=== PATIENT | male | born 1945 | race Caucasian/White ===

== ENCOUNTER → 2017-10-19 16:21 | Outpatient (CLI) | payer MEDICARE, MEDICAID, SELFPAY | PROVIDERS: Family Provider Family Medicine; PCP Family Medicine; Visit Provider Urology | DX: R82.99 Other abnormal findings in urine (principal) | CPT/HCPCS: 87086; 87088; 87186 ==

== ENCOUNTER 2017-10-30 14:07 | Inpatient (IN) | payer MEDICARE, MEDICAID, SELFPAY ==
[2017-10-22 08:30] VITALS: BP 143/80; PULSE 73; RESP 18; TEMP 36.4; O2SAT 93; BMI 34.7
[2017-10-22 09:01] LABS: Hematocrit 39.1 % (40-54); Hemoglobin 12.4 g/dl (13.0-16.5); Mean Corp Hgb Conc 31.7 g/gl (32-36); Mean Corpuscular Hgb 31.2 pg (27.0-32.0); Mean Corpuscular Volume 98.2 fL (80-94); Mean Platelet Vol. 9.4 fl (6.2-12.0); Platelet Count 341 K/mm3 (150-450); RBC Distribution Width CV 14.2 % (11.6-14.6); RBC Distribution Width SD 50.8 fl (35.1-43.9); Red Blood Count 3.98 M/mm3 (4.6-6.2); Scan Indicated on CBC? Y/N NO; White Blood Count 9.6 K/mm3 (4.4-11.0)
[2017-10-22 09:31] LABS: Anion Gap 10 (5-15); BUN 18 mg/dL (7-18); BUN/Creat Ratio 14.3 RATIO (10-20); Calcium,Total 9.6 mg/dL (8.5-10.1); Chloride 106 mmol/L (98-107); Creatinine, Serum 1.26 mg/dL (0.70-1.30); EST Glomerular Filtration Rate 60 mL/min (>60); Est Glom Filt Rate - Afr Amer 72 mL/min (>60); Estimated Creatinine Clearance 62.52 ml/min; Glucose 102 mg/dL (74-106); Potassium 3.9 mmol/L (3.5-5.1); Sodium Level 140 mmol/L (136-145)
[2017-10-29] VITALS (10 sets, daily range): BP systolic 117–181; BP diastolic 58–94; PULSE 60–79; RESP 16–18; TEMP 36.1–36.8; O2SAT 93–100; BMI 34.7
[2017-10-29] MEDS: Cefazolin 2 GM in 0.9% Normal Saline 100 ML IV (12:48)
[2017-10-29] MEDS: oxyCODONE 5 MG Tablet PO ×2 (16:53→21:06)
[2017-10-29] MEDS: 0.9% Normal Saline 1,000 ML 75 ML IV (16:54)
--- NOTE | 2017-10-29 17:28 | PCM.OPRPT ---
Report of Operation Date of Procedure: 10/29/17 Pre-Operative Diagnosis: Bladder neck contracture and gross gross hematuria Post-Operative Diagnosis: Same Surgery/Procedure Performed:: Transurethral incision of the prostate and transurethral resection of a very large bladder tumor Description of Surgical Findings:: 71-year-old male who has a history of a TURP in the past that was performed by me several years ago. Had not seen the patient for quite some time he ended up in [facility] at that point he had difficulty with a catheter placement cystoscopy was done a catheter was placed at [facility] and saw me for follow-up at that point remove the catheter and then schedule him for cystoscopy to evaluate the urinary channel as if there is reports of scar tissue in the channel. 71-year-old male taken back to the operating room at the smooth induction of general anesthesia he was placed in dorsal lithotomy position, penis and testicles were prepped and draped in usual sterile fashion, I went into the bladder with a 21 [place] African rigid cystourethroscope the entire length of the urethra was okay the sphincter was intact he had obvious signs of prior resection of the prostate open channel into the bladder count of the bladder neck was tight and then when I got into the bladder had a significant amount of debris in the bladder very hard to see. So I removed the cystoscope and I advanced a 26 South African urethroscope and switched over to the Rolle knife I then performed an incision of the bladder neck using the Rolle knife on both the left and right side at the 6 o'clock position and the 5 and 7 o'clock position once the incision was done then then I went into the bladder again still a lot of debris in the bladder so I decided Ellik out the debris and when I use a manual device to Ellik out the debris that I was able to see it much better and then after the Ellik and out this debris I could see a tumor that was filling the entire bladder coming from the patient's left side. We then switched over to the Olympus resectoscope and I started resecting this tumor and immediately saw that this was a very large invasive tumor appeared to be going to the bladder muscle and into fat. I resected as much as was deemed possible and safe but we did not and could not do a complete resection. After resecting this tumor as much as possible I then cauterized extensively to obtain hemostasis all the bladder tumor chips were removed and handed off as a specimen. On and inspection I think most likely has invasive aggressive type of bladder cancer. I put in a 24 South African catheter put on continuous bladder irrigation and the patient was then transferred to the floor in stable condition will do further workup in the hospital. Spoke to the family regarding the finding of a bladder tumor they were not aware of any prior diagnosis of a bladder tumor bladder cancer. Type of Anesthesia:: General Drains: 24fr - Admit VTE Documentation VTE Present on Admission: No VTE Mechan Device Prophylaxis: SCD's
[2017-10-29] MEDS: Ibuprofen 600 MG Tablet PO (17:45)
[2017-10-29] MEDS: Tamsulosin HCl 0.4 MG Capsule PO (17:45)
[2017-10-29] MEDS: Albuterol 2.5 MG/3 ML VIAL.NEB. INHALATION (20:04)
[2017-10-29] MEDS: Docusate Sodium 100 MG Capsule PO (21:07)
[2017-10-29] MEDS: Ciprofloxacin 500 MG Tablet PO (21:07)
[2017-10-29] MEDS: amLODIPine 10 MG Tablet PO (21:07)
[2017-10-29] MEDS: Acetaminophen 500 MG Tablet PO (22:12)
--- NOTE | 2017-10-29 22:15 | NURSING ---
[facility] called to place pt on cpap for hs.
[2017-10-30] VITALS (9 sets, daily range): BP systolic 94–133; BP diastolic 53–74; PULSE 60–89; RESP 16–18; TEMP 36.8–37.5; O2SAT 85–96
--- NOTE | 2017-10-30 | BLA_PTH ---
PATIENT: SUJEY VICTOR LOC: MS3 U#:[id number] AGE/SX: 71/M ROOM: WA320 RE10/31/[address]: Dr. Yo Puckett MD : 1945 BED: 1 DIS: 11/03/2017 SPEC #: [id number] RECD: 10/30/17 10:01 STATUS: NURA TUCKER #: [id number] NATIVIDAD: 10/30/17 00:[address]: Yo Puckett DEPT: SURGICAL PATHOLOGY RECD BY: Akshat Hernandez ENTERED: 10/30/17 10:01 SP TYPE: BLADDER BX OTHR DR: Dr. Malcolm Funez MD Tissues: Urinary bladder, NOS Procedures: Surgery Specimen Level IV HEADER OPERATION: Cystoscopy, transurethral incision of bladder neck obstruction PRE-OP DIAGNOSIS: Bladder neck contracture; bladder tumor TISSUE SUBMITTED: Bladder tumor MICROSCOPIC DIAGNOSIS Urinary bladder tumor, transurethral resection: Squamous cell carcinoma. AM:judy 11/03/17 COMMENT BLADDER CANCER (TUR) SUMMARY: Procedure - TURBT Histologic type ? squamous cell carcinoma, keratinizing. Associated epithelial lesions ? not identified Histologic grade ? G1 (well differentiated) Tumor configuration ? papillary and exophytic. Detrusor muscle - present and free of tumor. Lymph-Vascular invasion ? not identified Microscopic extent of tumor ? noninvasive carcinoma Additional pathologic findings ? mild chronic inflammation. The above summary is in compliance with [employer] (CAP) Cancer Protocols Checklist and [place] Joint Committee on Cancer (AJCC), Staging Manual, 8th Ed. Case has been reviewed in consultation with Dr. Orourke who concurs with the above diagnosis. IDC:SJ MICROSCOPIC DESCRIPTION Slides are reviewed. GROSS DESCRIPTION Received in fixative is one container labeled with the patient's name and designated bladder tumor. The specimen consists of multiple irregular and friable fragments of james tissue measuring 8 x 8 x 1.4 cm. The specimen is totally submitted in 22 cassettes. / AM:judy 10/30/17 TC:0 CPT: 47849 ADDENDUM ADDENDUM ADDENDUM ADDENDUM ADDENDUM ADDENDUM ADDENDUM ADDENDUM ADDENDUM ADDENDUM ADDENDUM 12/09/2017 15:42 ADDENDUM 12/09/2017 15:42 ADDENDUM 12/09/2017 15:42 ADDENDUM 12/09/2017 15:42 ADDENDUM 12/09/2017 15:42 This addendum is added to incorporate an outside pathology consultation report. The case was examined at [facility] (#[id number]) and the following diagnosis was rendered. 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 Muscularis propria is present for evaluation and is negative for malignancy. Please see complete above mentioned consultation report in EMR
--- NOTE | 2017-10-30 00:19 | NURSING ---
Called [facility] to have them bleed some oxygen into pt's CPAP. He has been hovering around 88%. She will bring up the supplies to do so.
[2017-10-30] MEDS: 0.9% Normal Saline 1,000 ML 100 ML IV ×2 (02:33→13:27)
[2017-10-30] MEDS: oxyCODONE 5 MG Tablet PO (02:39)
[2017-10-30] MEDS: Albuterol 2.5 MG/3 ML VIAL.NEB. INHALATION (07:23)
--- NOTE | 2017-10-30 07:40 | NURSING ---
Called and talked with CT to let them know that Dr Puckett wants patient to have CBI running while he is having the CT. Dr Puckett does not want patient to clot off if the CBI isn't running.
[2017-10-30] MEDS: Ibuprofen 600 MG Tablet PO (07:46)
--- NOTE | 2017-10-30 08:24 | PCA ---
off floor via bed , ct scan
[2017-10-30] MEDS: 0.9% NaCl Peripheral Flush Adult/Peds IV ×2 (09:40→15:49)
[2017-10-30] MEDS: Docusate Sodium 100 MG Capsule PO ×2 (09:40→20:58)
[2017-10-30] MEDS: Pantoprazole Sodium 40 MG Tablet PO (09:40)
[2017-10-30] MEDS: Ciprofloxacin 500 MG Tablet PO ×2 (09:40→20:58)
--- NOTE | 2017-10-30 12:28 | CASEMGMT ---
Social Work: TC to [facility] to inquire about serves and to speak with thu. Casemanager is Winnie Milligan. Winnie is not in the office today. Voice mail left for environmental services tech to call this SW back regarding patient services and resumption of care. Will follow to assist as needed with D/C planning. Kanu Schmidt
--- NOTE | 2017-10-30 12:54 | CASEMGMT ---
Social work: TC from Maryjane at [facility]. Maryjane states that patient receives 3 hours of aid services Thursday through Thursday through [facility]. Maryjane states that services will be resumed on Thursday. Spoke with patient and . Both aware that aid services will resume on Thursday. Patient's states that patient also receives skilled PT through [facility] and they will be coming to the home on Thursday. PLAN: Patient to return home with and continued aid services Thu- Thu 3 hours a day. TIGRE Gama
--- NOTE | 2017-10-30 13:30 | CASEMGMT ---
ALLIE HEATH Face to Face with patient. Patient and in room. Patient states he lives with in 2 story home with bed and bath on 1st floor. Patient states that he has cane, walker, nebulizer, and CPAP at home. Patient has long-term and PT with [facility]. Will monitor need for home oxygen and preferred DME is [facility]. ALLIE HEATH called HHC and confirmed services and will update with discharge information when appropriate. ALLIE HEATH called and confirmed with [facility] that they are in-network with patients insurance. Disposition Plan: Patient to return home with resumption of HHC, family support, and follow-up plans in place. Will monitor for need for home oxygen.
--- NOTE | 2017-10-30 14:50 | PCM.PROGNOTE ---
Subjective: 71-year-old male admitted after transurethral resection of a very large bladder tumor, it was an incomplete resection due to the size of the tumor appear to be invasive cancer. Pathology report is pending he does have a CAT scan done this morning demonstrates no clear evidence of metastatic disease but I spoke to the patient regarding the possibility of micrometastatic disease. - Physical Exam General: Alert, Oriented x3, Cooperative HEENT: Atraumatic, PERRLA, EOMI, Normocephalic Neck: Supple, No JVD, Negative Carotid Bruits Lungs: Clear to auscultation, Normal air movement Cardiovascular: Regular rate, No murmurs Abdomen: Bowel Sounds Present, Soft, Non Tender Extremities: No edema, Capillary Refill Less than 3 Seconds Skin: No rashes, No breakdown Musculoskeletal: No Tenderness to Palpation of Joints or Extremities Neurological: Cranial nerves II-XII grossly intact Psych/Mental Status: Normal Affect, Appropriate Vital Signs Temp Pulse Resp BP Pulse Ox 98.2 F 63 16 94/53 L 95 10/30/17 13:31 10/30/17 13:31 10/30/17 13:31 10/30/17 13:31 10/30/17 13:31 Oxygen Flow Rate (L/min) 3 Oxygen Delivery Method Nasal Cannula Weight: 122.5 kg Body Mass Index (BMI) 34.7 Intake and Output for Last 24 Hours 10/28/17 10/29/17 10/30/17 23:59 23:59 23:59 Intake Total 1138 / 1138 2275 / 2275 Output Total 1200 / 1200 1300 / 1300 Balance -62 / -62 975 / 975 Medical Necessity - Tobacco Use Smoking Status: Never smoker Tobacco Use: Secondhand Assessment/Plan All Active Problems Acute deep vein thrombosis (DVT) (Acute) Acute DVT of left tibial vein (Acute) 71-year-old male found to have bladder cancer appears to be invasive. CAT scan was done and reviewed he has some mild hydronephrosis on the left side right side no hydro-. Plan to have the catheter removed tomorrow morning by the nursing staff and he can go home after he is able to urinate he will follow-up in the office on to review pathology and will plan for referral to a tertiary care center for further care.
--- NOTE | 2017-10-30 14:52 | PCM.DC.URO ---
Discharge Diet: Light diet - advance as tolerated Discharge Activity: Return to Normal Activity Call your doctor if your incision/area has: Continuous Slow Oozing, Sudden Increased Bleeding, Increased Pain/ Swelling, Increased Redness Call your doctor if you observe: Fever of 101 or Higher, Inability to have a bowel movement, Uncontrolled pain Suture Line Care: Avoid Pulling/Pushing, Avoid Pinching/Bending Allergies/Adverse Reactions: Allergies tramadol Adverse Reaction (Verified 10/22/17 08:10) SKIN RASH IV TRAMADOL Medications to take at Discharge Amlodipine [Norvasc] 10 mg PO QHS 09/06/13 Albuterol Aerosols [Ventolin Aerosols] 2.5 mg INHALATION DAILY 10/22/17 Ciprofloxacin [Cipro] 500 mg PO BID 10/22/17 Pantoprazole Sodium [Protonix] 40 mg PO DAILY 10/22/17 Tamsulosin HCl [Flomax] 0.4 mg PO DAILY 10/22/17 Ciprofloxacin [Cipro] 500 mg PO BID #14 tab 10/29/17 Hydrocodone/Acetaminophen [Hume 5-325 Tablet] 1 ea PO Q4H PRN PRN 5 Days #14 tab 10/29/17 The following prescriptions were given: Hydrocodone/Acetaminophen [Hume 5-325 Tablet] 1 ea PO Q4H PRN PRN 5 Days #14 tab PRN Reason: Pain Ciprofloxacin [Cipro] 500 mg PO BID #14 tab Primary Care Physician: Malcolm Funez [Primary Care Provider] - Test Results: Test results from this visit will be discussed in further detail at your follow-up appointment, if applicable. Please Follow Up With: Yo Puckett MD When: please call to make an appointment. Proposed Discharge Date: 10/31/17
[2017-10-30] MEDS: Furosemide 20 MG/2 ML VIAL 10 MG IV (15:49)
[2017-10-30] MEDS: amLODIPine 10 MG Tablet PO (20:58)
[2017-10-31] VITALS (9 sets, daily range): BP systolic 111–140; BP diastolic 63–82; PULSE 72–90; RESP 16–20; TEMP 37.1–37.4; O2SAT 86–96
[2017-10-31] MEDS: oxyCODONE 5 MG Tablet PO ×4 (08:05→21:33)
[2017-10-31] MEDS: Albuterol 2.5 MG/3 ML VIAL.NEB. INHALATION (08:06)
[2017-10-31] MEDS: Pantoprazole Sodium 40 MG Tablet PO (08:33)
[2017-10-31] MEDS: Ciprofloxacin 500 MG Tablet PO ×2 (08:33→21:33)
[2017-10-31] MEDS: Docusate Sodium 100 MG Capsule PO ×2 (08:33→21:33)
--- NOTE | 2017-10-31 14:17 | NURSING ---
Pt voided 100ml of urine. This nurse bladder scanned for 467ml PVR. Pt also walked in mancuso and pt needs 4L of o2 while ambulating. Dr. Puckett just made aware and cancelled Discharge for today and wants sal replaced and hospitalist to consult.
--- NOTE | 2017-10-31 14:23 | CON.PCM_ITS ---
Problem List (1) Shortness of breath Status: Acute Reason for Consult Date of Consultation: 10/31/17 Reason for Consultation: worsening shortness of breath History of Present Illness: The patient is a 71 year old M with a history of respiratory failure due to pneumonia status post tracheostomy, transurethral resection of right large bladder tumor done last , GLEN and chronic venous insufficiency. He was admitted for TURP which he had on 10/29/17. After that, patient was brought back to his room on 3 L of oxygen. Patient has required increasing amounts of oxygen since then and is now up to 5 L and unable to wean off. Hospitalist service was therefore consulted for management of shortness of breath. History taken from patient and his . Patient was managed for pneumonia back in April 2017 and developed respiratory failure as a result of that. He was intubated in the ICU for about 3 months according to his and subsequently had a tracheostomy done. He was in the [facility] up until about 6 weeks ago when he was sent home. At home he has been on room air and ambulates well with his cane without getting short of breath. He uses a CPAP at night with settings of 14. He had had any shortness of breath until he was admitted. During this admission he has not had any anticoagulation for DVT prophylaxis. SCDs were prescribed the patient has been wearing them only intermittently. This is because he did not really like wearing that. He denies any chest pain, any abdominal pain, any diarrhea or vomiting. He did admit to bilateral lower extremity swelling was in the left than the right which is chronic. He also denied any calf pain. He is denied being managed for DVT or PE in the past. However, review of the records showed he had a DVT of the left popliteal and gastrocnemius veins in 2016; not clear how long he was anticoagulated for then. Of note, the bladder tumor resected was an incidental finding as patient had come in for from what he describes urethral dilatation due to stricture of the urethra.. Per Urology note, it was an incomplete resection of the very large bladder tumor. Size of the tumor does appear make it appear to be an invasive cancer. During review, patient was on 5 L of oxygen and when he was brought down to about 2-3 L, saturation dropped to 87%. He denied any cough, fever or chills. He had been using incentive spirometer and had been ambulating with help but most of the time was in bed. Review of systems otherwise negative. [] Past Medical History Past Medical History (Chronic Problems): Chronic Problems Lipodermatosclerosis (Chronic) Venous hypertension, chronic, with inflammation (Chronic) Chronic venous insufficiency (Chronic) Back pain (Chronic) Edema leg (Chronic) Leg swelling (Chronic) Localized edema (Chronic) Superficial thrombophlebitis of left leg (Chronic) Hypertension (Chronic) History of Hodgkin's disease (Chronic) History of Legionnaire's disease (Chronic) History of kidney stones (Chronic) hemosiderin staining (Chronic) Allergies tramadol Adverse Reaction (Verified 10/22/17 08:10) SKIN RASH IV TRAMADOL Home Medications: Ambulatory Orders Medication Instructions Recorded Amlodipine [Norvasc] 10 mg PO QHS 09/06/13 Albuterol Aerosols [Ventolin 2.5 mg INHALATION DAILY 10/22/17 Aerosols] Ciprofloxacin [Cipro] 500 mg PO BID 10/22/17 Pantoprazole Sodium [Protonix] 40 mg PO DAILY 10/22/17 Tamsulosin HCl [Flomax] 0.4 mg PO DAILY 10/22/17 Ciprofloxacin [Cipro] 500 mg PO BID #14 tab 10/29/17 Hydrocodone/Acetaminophen [Gentry 1 ea PO Q4H PRN PRN 5 Days #14 tab 10/29/17 5-325 Tablet] Surgical History: noncontributory, - - Patient underwent a left lower extremity vein stripping procedure in 2010 at [facility]. The procedure was performed using 2 incisions, both below the knee. 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 He underwent right kidney surgery in childhood, due to the presence of a blood vessel wrapped around the ureter. Bilateral total hip replacement was performed in 2003 in 2004. Colostomy was performed in 2000, with reversal in 2002. Patient has had several incisional hernia repairs. Lives: Spouse/ Significant Other Smoking Status: Never smoker Tobacco Use: Secondhand - *Family History Maternal History Items: - - The patient's father of AIDS related to a history of cerebrovascular accident and pacemaker placement. The patient's mother at the age of 76 with history of vasculitis. Review of Systems Constitutional: Denies: Chills, Fever, Malaise, Weakness, Weight Change, Fatigue Eyes: Denies: Blurred vision HEENT: Denies: Head Aches, Sinus Congestion, Sinus Drainage Cardiovascular: Denies: Chest Pain, Light Headedness, Orthopnea, Palpitations, Syncope Respiratory: Reports: Shortness of Breath, Shortness of breath at rest, Shortness of breath upon exertion. Denies: Cough, Hemoptysis, Pleuritic Pain, Sputum production, Wheezing Gastrointestinal: Denies: Abdominal Pain, Diarrhea, Dyspepsia, Nausea, Vomiting Genitourinary: Denies: Dysuria Musculoskeletal: Denies: Foot Pain, Joint Pain, Joint Tenderness, Leg Pain, Muscle pain Skin: Denies: Rash, Wounds Neurological: Denies: Numbness, Tingling, Focal weakness Psychiatric: Denies: Anxiety, Depression, Homicidal Ideations, Suicidal Ideations Hematologic/ Lymphatic: Denies: Easy Bruising, Easy Bleeding Patient Problems: Active and Suspected Problems Shortness of breath (Acute) - Physical Exam General: Alert, Oriented x3, Cooperative, No apparent distress, - - obese HEENT: Atraumatic, PERRLA, EOMI, Normocephalic Oral: Moist Mucosa Neck: Supple, No JVD, Negative Carotid Bruits Lungs: - - has coarse crackles bilaterally in mid and lower lung prater. on 5L of oxygen at time of review Cardiovascular: Regular rate, Regular Rhythm, Normal S1, Normal S2, No murmurs Abdomen: Bowel Sounds Present, Soft, Non Tender, Non-Distended, No Hepato- splenomegaly, Obese Extremities: No clubbing, No cyanosis, Capillary Refill Less than 3 Seconds, No Calf Tenderness, - - bilateral LE swelling, which is mildly pitting. RLE is 37cm in circumference, with LLE being 42cm in circumference. Skin: No rashes, No breakdown, - - hyperpigmentation of LLE due to stasis dermatitis Musculoskeletal: No Tenderness to Palpation of Joints or Extremities Lymphatic: No Cervical, Supraclavicular, or Inguinal Adenopathy Neurological: Cranial nerves II-XII grossly intact, Motor Exam 5/5 strength throughout Psych/Mental Status: Normal Affect, Appropriate, Alert and oriented to time, place, person, mood and affect Vital Signs Temp Pulse Resp BP Pulse Ox 99.3 F H 84 20 H 134/64 H 91 10/31/17 07:55 10/31/17 08:06 10/31/17 08:06 10/31/17 07:55 10/31/17 11:53 Oxygen Flow Rate (L/min) [ 4 AMBULATION with Oxygen] Oxygen Flow Rate (L/min) [At 0 REST on Room Air] Oxygen Flow Rate (L/min) 5 Oxygen Delivery Method Nasal Cannula Weight: 270 lb 1.06 oz Body Mass Index (BMI) 34.7 Intake and Output for Last 24 Hours 10/29/17 10/30/17 10/31/17 23:59 23:59 23:59 Intake Total 1138 / 1138 2425 / 2425 150 / 150 Output Total 1200 / 1200 2600 / 2600 250 / 250 Balance -62 / -62 -175 / -175 -100 / -100 Assessment/Plan All Active Problems Shortness of breath (Acute) Acute deep vein thrombosis (DVT) (Acute) Acute DVT of left tibial vein (Acute) 72-year-old male with a history of respiratory failure due to pneumonia, GLEN on CPAP and recent history of TURP due to invasive bladder tumor most likely cancer. Hospitalist service was consulted on account of worsening shortness of breath and increasing oxygen requirements. 1. Acute hypoxic respiratory failure- possible causes include PE, undiagnosed CHF, GLEN and OSH * has many risk factors for PE, including prolonged bed rest, obesity, bladder tumor most likely cancer and not receiving any anticoagulation for the past 4 days that has been in the hospital. * He did have a CT chest with contrast on 10/31/17 which was negative for a PE and showed increased markings at lung baes with areas of confluence suggestive of bibasilar atelectasis. Mild degree of increased markings in lingular segment of left upper lobe. Normal enhanced pulmonary arteries * stat ABG: pH of 7.36, pO2-56, pCO2-37. * was saturating at 87% on 3L of oxygen, not on oxygen at home * EKG done on 10/22/17 showed normal sinus rhythm, cnnot rule out inferior infarct, age undetermined. * will get stat CXR, BMP, BNP, 2D echo and DUplex of his LEs as well as troponins * give one dose of IV lasix 40mg once. * start CPAP therapy * pulmonology consult * maintain saturation >92% * aggressive use of incentive spirometry * breathing treatments with duonebs * discussed with radiology- patient had CT chest with contrast, not a CT angiogram. The timing of the contrast with the chest CT is apparently during the venous phase, per radiology, so it is very possible that a PE may have been missed. Based on this discussion, will get a stat CT angiogram. * 2. History of DVT of LLE * patient denied any history of DVT; however, review of EMR showed a report from 11/15 which showed an acute resolving DVT in left popliteal and gastrocnemius vein; unknown if, and for how long he was anticoagulated. * duplex ordered for current LE swelling, as mentioned in 1. * 3. Invasive bladder tumor s/p partial resection * management as per urology * on flomax * 4. Hypertension: controlled. On amlodipine 10mg daily. 5. GLEN: on CPAP qhs [id number] 6. Remote History of Non Hodgkin's lymphoma: s/p treatment. stable. 7. Chronic venous insufficiency: compression stockings bilaterally DVT prophylaxis: will start heparin 5000IU sq q8 Code status: Full code. * Patient and counseled extensively about different types of CODE STATUS including respiratory full code, DNR CCA and DNR CCA. Patient elects to be full code.Total face to face time 18 minutes This note was generated with [employer] dictation software. It may contain incorrect words, spelling, and punctuation that were not noted in checking the note before signing. Code Visit Inpatient E&M: 42891 Init Hosp L3 Procedures: 42426 Advncd Care Plan 30 Min
[2017-10-31] MEDS: Ibuprofen 600 MG Tablet PO (14:54)
--- NOTE | 2017-10-31 15:00 | NURSING ---
Nicole's aly and Rah from [facility] is aware that Dr. Petersen wants called with results.
[2017-10-31 15:11] LABS: Allen Test POS; Base Excess -5 mmol/L (-2 to +2); Bicarbonate 20.6 mmol/L (22-26); Blood Gas Specimen Type ART; O2 Delivery Device Nasal Can; PO2 56 mmHG (75-100); SITE R Radial; SO2 87 % (95-99); Time Given 1458; Total Carbon Dioxide 22 mmol/L; pCO2 37.6 mmHg (35-45); pH 7.35 (7.35-7.45)
--- NOTE | 2017-10-31 15:13 | NURSING ---
LAb here and obtained blood for CBC, BMP, BNP
--- NOTE | 2017-10-31 15:27 | NURSING ---
REsults of ABG's given to me by BRYAN Monreal and this nurse took a picture and sent it via EeBriat to Dr. Petersen. On the phone with Dr. Petersen she is aware of results and wants him on hospital CPAP. Rah aware.
[2017-10-31 15:38] LABS: Anion Gap 8 (5-15); BUN 24 mg/dL (7-18); BUN/Creat Ratio 16.6 RATIO (10-20); Calcium,Total 8.4 mg/dL (8.5-10.1); Chloride 111 mmol/L (98-107); Creatinine, Serum 1.45 mg/dL (0.70-1.30); EST Glomerular Filtration Rate 51 mL/min (>60); Est Glom Filt Rate - Afr Amer 62 mL/min (>60); Estimated Creatinine Clearance 54.33 ml/min; Glucose 114 mg/dL (74-106); Sodium Level 142 mmol/L (136-145)
--- NOTE | 2017-10-31 15:44 | NURSING ---
Dr. Petersen is aware that Echo and Duplex can not be done until tomorrow. This nurse asked if we could put SCD's on pt as he was refusing them and they were not on and now we are ruling out a DVT. Dr. Petersen said to go ahead and put SCD's on and his own compressor stockings from home.
[2017-10-31 15:49] LABS: BNP,B-Type NATRIURETIC PEPTIDE 85.8 pg/mL (0-100)
[2017-10-31 15:54] LABS: Absolute Lymphocyte Count 2.46 X10^3/ul (0.83-4.51); Basophil# 0.04 X10^3/uL; Basophil% 0.3 % (0-1); Eosinophil# 0.33 X10^3/uL; Eosinophils% 2.3 % (0-5); Hematocrit 31.4 % (40-54); Hemoglobin 9.8 g/dl (13.0-16.5); Lymphocyte # 2.46 X10^3/ul (4.0); Lymphocyte % 17.4 % (19-41); Mean Corp Hgb Conc 31.2 g/gl (32-36); Mean Corpuscular Hgb 30.8 pg (27.0-32.0); Mean Corpuscular Volume 98.7 fL (80-94); Mean Platelet Vol. 9.5 fl (6.2-12.0); Monocyte# 2.25 X10^3/uL; Monocyte% 15.9 % (0-10); Neutrophil % 63.9 % (47-70); Platelet Count 270 K/mm3 (150-450); RBC Distribution Width CV 14.5 % (11.6-14.6); RBC Distribution Width SD 53.2 fl (35.1-43.9); Red Blood Count 3.18 M/mm3 (4.6-6.2); White Blood Count 14.1 K/mm3 (4.4-11.0)
[2017-10-31 15:55] LABS: Differential Indicated SCAN CRITERIA MET; POSITIVE COUNT NO; POSITIVE DIFFERENTIAL YES; POSITIVE MORPHOLOGY YES
[2017-10-31] MEDS: 0.9% NaCl Peripheral Flush Adult/Peds IV ×2 (15:57→17:28)
[2017-10-31] MEDS: Ketorolac 15 MG/ML Vial IV (15:57)
[2017-10-31] MEDS: Furosemide 40 MG/4 ML Vial IV (15:58)
[2017-10-31 16:36] LABS: Anion Gap 8 (5-15); BUN 24 mg/dL (7-18); BUN/Creat Ratio 16.8 RATIO (10-20); Calcium,Total 8.1 mg/dL (8.5-10.1); Chloride 111 mmol/L (98-107); Creatinine, Serum 1.43 mg/dL (0.70-1.30); EST Glomerular Filtration Rate 52 mL/min (>60); Est Glom Filt Rate - Afr Amer 63 mL/min (>60); Estimated Creatinine Clearance 55.09 ml/min; Glucose 114 mg/dL (74-106); Potassium 4.2 mmol/L (3.5-5.1); Sodium Level 142 mmol/L (136-145)
[2017-10-31 16:45] LABS: Acanthocytes RARE; Differential Comment SCANNED; Platelet Estimate ADEQUATE (ADEQ)
[2017-10-31] MEDS: Tamsulosin HCl 0.4 MG Capsule PO (17:27)
[2017-10-31] MEDS: 0.9% Normal Saline 1,000 ML 75 ML IV (17:31)
[2017-10-31] MEDS: amLODIPine 10 MG Tablet PO (21:33)
[2017-10-31] MEDS: Heparin Injection (Vial) 5,000 UNIT/ML VIAL 5000 UNIT SC (21:33)
[2017-11-01] MEDS: oxyCODONE 5 MG Tablet PO ×4 (01:00→22:12)
[2017-11-01 02:30] VITALS: BP 128/68; PULSE 67; RESP 16; TEMP 36.6; O2SAT 94
[2017-11-01 06:40] LABS: Absolute Neutrophil Count 4.5 X10^3/uL (2.0-7.7); Basophil# 0.03 X10^3/uL; Basophil% 0.3 % (0-1); Eosinophil# 0.58 X10^3/uL; Eosinophils% 6.3 % (0-5); Hemoglobin 9.3 g/dl (13.0-16.5); Mean Corpuscular Hgb 30.4 pg (27.0-32.0); Mean Platelet Vol. 9.5 fl (6.2-12.0); Monocyte# 1.77 X10^3/uL; Monocyte% 19.2 % (0-10); Neutrophil # 4.45 X10^3/uL (2.7-7.7); Neutrophil % 48.1 % (47-70); Platelet Count 248 K/mm3 (150-450); RBC Distribution Width CV 14.7 % (11.6-14.6); RBC Distribution Width SD 52.5 fl (35.1-43.9); Red Blood Count 3.06 M/mm3 (4.6-6.2); White Blood Count 9.2 K/mm3 (4.4-11.0)
[2017-11-01 06:41] LABS: Differential Indicated SCAN CRITERIA MET; POSITIVE COUNT NO; POSITIVE DIFFERENTIAL YES; POSITIVE MORPHOLOGY YES
[2017-11-01 06:54] LABS: Anion Gap 10 (5-15); BUN 22 mg/dL (7-18); BUN/Creat Ratio 16.3 RATIO (10-20); Calcium,Total 8.3 mg/dL (8.5-10.1); Chloride 111 mmol/L (98-107); Creatinine, Serum 1.35 mg/dL (0.70-1.30); EST Glomerular Filtration Rate 55 mL/min (>60); Est Glom Filt Rate - Afr Amer 67 mL/min (>60); Estimated Creatinine Clearance 58.35 ml/min; Glucose 133 mg/dL (74-106); Potassium 3.6 mmol/L (3.5-5.1); Sodium Level 141 mmol/L (136-145)
[2017-11-01 07:24] VITALS: PULSE 62; RESP 20; O2SAT 94
[2017-11-01] MEDS: Albuterol 2.5 MG/3 ML VIAL.NEB. INHALATION ×3 (07:24→19:26)
--- NOTE | 2017-11-01 08:44 | PCM.CONS.GEN ---
Reason for Consult Date of Consultation: 11/01/17 Reason for Consultation: Acute hypoxic respiratory insufficiency History of Present Illness: The patient is a 71-year-old male, with a history as outlined below, who presented to [facility] on October 29 to undergo a transurethral resection of a large bladder tumor. The patient has a known history of GLEN, for which she utilizes nocturnal CPAP therapy. He does not have a supplemental oxygen requirement at his baseline. Postoperatively, the patient developed worsening shortness of breath and was subsequently placed on supplemental oxygen. To date, the patient has now undergone 2 CAT scans of his chest, one on October 30 and one on October 31. Both of those chest imaging studies demonstrated the presence of bilateral atelectasis. The patient denies a personal smoking history, but does report secondhand smoke exposure growing up. He has never been diagnosed with COPD or asthma previously. However, his primary care provider did recently order pulmonary function testing for him. It appears that the patient has been requiring 3-4 L/min of supplemental oxygen over the last 24 hours. However, upon entering his room this morning he was not even wearing his nasal cannula. He denies the presence of shortness of breath, chest tightness, wheezing or cough. The patient is currently afebrile and without evidence of a leukocytosis. Past Medical History Past Medical History (Chronic Problems): Chronic Problems Lipodermatosclerosis (Chronic) Venous hypertension, chronic, with inflammation (Chronic) Chronic venous insufficiency (Chronic) Back pain (Chronic) Edema leg (Chronic) Leg swelling (Chronic) Localized edema (Chronic) Superficial thrombophlebitis of left leg (Chronic) Hypertension (Chronic) History of Hodgkin's disease (Chronic) History of Legionnaire's disease (Chronic) History of kidney stones (Chronic) hemosiderin staining (Chronic) Allergies tramadol Adverse Reaction (Verified 10/22/17 08:10) SKIN RASH IV TRAMADOL Home Medications: Ambulatory Orders Medication Instructions Recorded Amlodipine [Norvasc] 10 mg PO QHS 09/06/13 Albuterol Aerosols [Ventolin 2.5 mg INHALATION DAILY 10/22/17 Aerosols] Ciprofloxacin [Cipro] 500 mg PO BID 10/22/17 Pantoprazole Sodium [Protonix] 40 mg PO DAILY 10/22/17 Tamsulosin HCl [Flomax] 0.4 mg PO DAILY 10/22/17 Ciprofloxacin [Cipro] 500 mg PO BID #14 tab 10/29/17 Hydrocodone/Acetaminophen [[place] 1 ea PO Q4H PRN PRN 5 Days #14 tab 10/29/17 5-325 Tablet] Surgical History: noncontributory, - - Patient underwent a left lower extremity vein stripping procedure in 2010 at [facility]. The procedure was performed using 2 incisions, both below the knee. 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 He underwent right kidney surgery in childhood, due to the presence of a blood vessel wrapped around the ureter. Bilateral total hip replacement was performed in 2003 in 2004. Colostomy was performed in 2000, with reversal in 2002. Patient has had several incisional hernia repairs. Lives: Spouse/ Significant Other Smoking Status: Never smoker Tobacco Use: Secondhand - *Family History Maternal History Items: - - The patient's father of AIDS related to a history of cerebrovascular accident and pacemaker placement. The patient's mother at the age of 76 with history of vasculitis. Review of Systems Constitutional: Denies: Chills, Fever Eyes: Denies: Blurred vision, Double vision HEENT: Denies: Head Aches, Sinus Congestion, Sinus Drainage Cardiovascular: Denies: Chest Pain, Palpitations Respiratory: Denies: Cough, Shortness of Breath Gastrointestinal: Denies: Abdominal Pain, Nausea, Vomiting Genitourinary: Reports: Retention Musculoskeletal: Denies: Joint Pain, Joint Tenderness Skin: Denies: Rash, Wounds Neurological: Denies: Numbness, Tingling, Focal weakness Psychiatric: Denies: Anxiety, Depression, Homicidal Ideations, Suicidal Ideations Hematologic/ Lymphatic: Reports: Anemia Patient Problems: Active and Suspected Problems Shortness of breath (Acute) Objective: The patient's most recent lab work, culture data and imaging studies have all been personally reviewed. - Physical Exam General: Alert, Oriented x3, Cooperative, No apparent distress HEENT: Atraumatic, PERRLA, Normocephalic Oral: No Gingival or Mucosal Lesions/ Ulcerations Neck: Supple, No Nodes, Trachea Midline, - - Large neck circumference with redundant soft tissue. Lungs: No rhonchi, No wheeze, No rales, Diminished, - - Speaking in complete sentences. No accessory muscle use. Cardiovascular: Regular rate, Regular Rhythm, Normal S1, Normal S2, No murmurs Abdomen: Bowel Sounds Present, Soft, Non Tender, Obese Extremities: No clubbing, No cyanosis, Edema Skin: - - Lower extremity venous stasis dermatitis Musculoskeletal: No Muscle Wasting Lymphatic: No Cervical, Supraclavicular, or Inguinal Adenopathy Neurological: Neuro grossly intact Psych/Mental Status: Normal Affect, Appropriate Vital Signs Temp Pulse Resp BP Pulse Ox 98 F 62 20 H 128/68 H 94 11/01/17 02:30 11/01/17 07:24 11/01/17 07:24 11/01/17 02:30 11/01/17 07:24 Oxygen Flow Rate (L/min) [ 4 AMBULATION with Oxygen] Oxygen Flow Rate (L/min) [At 0 REST on Room Air] Oxygen Flow Rate (L/min) 6 Oxygen Delivery Method Nasal Cannula Weight: 270 lb 1.06 oz Body Mass Index (BMI) 34.7 Intake and Output for Last 24 Hours 10/30/17 10/31/17 11/01/17 23:59 23:59 23:59 Intake Total 2425 / 2425 1996 405 / 405 Output Total 2600 / 2600 2620 / 2620 600 / 600 Balance -175 / -175 -623 / -623 -195 / -195 Laboratory Tests Past 24 Hrs 10/31/17 10/31/17 10/31/17 15:05 15:15 15:15 WBC RBC Hgb Hct MCV MCH MCHC RDW RDW Differential Plt Count MPV Immature Gran % (Auto) Neut % (Auto) Lymph % (Auto) [place] % (Auto) Eos % (Auto) Baso % (Auto) Absolute Neuts (auto) Absolute Lymphs (auto) Total Counted Differential Comment Diff Path Review Platelet Estimate Acanthocytes (Spur) Specimen Type ART Sample Site R Radial pH 7.35 Bicarbonate Actual 20.6 L POC Total CO2 22 Base Excess -5 L O2 Saturation 87 L ABG pCO2 37.6 ABG pO2 56 L Serjio Test POS O2 Delivery Device Nasal Can Liter Flow 5.0 Blood Gas Notified Whom HOSP Blood Gas Notified Time 1458 Sodium 142 Potassium 4.0 Chloride 111 H Carbon Dioxide 23.0 Anion Gap 8 BUN 24 H Creatinine 1.45 H Estim Creat Clear Calc 54.33 Est GFR (MDRD) Af Amer 62 Est GFR (MDRD) Non-Af 51 L BUN/Creatinine Ratio 16.6 Glucose 114 H Calcium 8.4 L Troponin I B-Natriuretic Peptide 85.8 10/31/17 10/31/17 10/31/17 15:15 15:15 15:15 WBC 14.1 H RBC 3.18 L Hgb 9.8 L Hct 31.4 L MCV 98.7 H MCH 30.8 MCHC 31.2 L RDW 14.5 RDW Differential 53.2 H Plt Count 270 MPV 9.5 Immature Gran % (Auto) 0.200 Neut % (Auto) 63.9 Lymph % (Auto) 17.4 L [place] % (Auto) 15.9 H Eos % (Auto) 2.3 Baso % (Auto) 0.3 Absolute Neuts (auto) 9.0 H Absolute Lymphs (auto) 2.46 Total Counted Not Reportable Differential Comment SCANNED Diff Path Review May foll Platelet Estimate ADEQUATE Acanthocytes (Spur) RARE Specimen Type Sample Site pH Bicarbonate Actual POC Total CO2 Base Excess O2 Saturation ABG pCO2 ABG pO2 Serjio Test O2 Delivery Device Liter Flow Blood Gas Notified Whom Blood Gas Notified Time Sodium 142 Potassium 4.2 Chloride 111 H Carbon Dioxide 23.0 Anion Gap 8 BUN 24 H Creatinine 1.43 H Estim Creat Clear Calc 55.09 Est GFR (MDRD) Af Amer 63 Est GFR (MDRD) Non-Af 52 L BUN/Creatinine Ratio 16.8 Glucose 114 H Calcium 8.1 L Troponin I < 0.015 B-Natriuretic Peptide 10/31/17 10/31/17 11/01/17 19:05 22:00 06:09 WBC 9.2 RBC 3.06 L Hgb 9.3 L Hct 30.0 L MCV 98.0 H MCH 30.4 MCHC 31.0 L RDW 14.7 H RDW Differential 52.5 H Plt Count 248 MPV 9.5 Immature Gran % (Auto) 0.100 Neut % (Auto) 48.1 Lymph % (Auto) 26.0 [place] % (Auto) 19.2 H Eos % (Auto) 6.3 H Baso % (Auto) 0.3 Absolute Neuts (auto) 4.5 Absolute Lymphs (auto) 2.40 Total Counted Not Reportable Differential Comment Diff Path Review Platelet Estimate Acanthocytes (Spur) Specimen Type Sample Site pH Bicarbonate Actual POC Total CO2 Base Excess O2 Saturation ABG pCO2 ABG pO2 Serjio Test O2 Delivery Device Liter Flow Blood Gas Notified Whom Blood Gas Notified Time Sodium Potassium Chloride Carbon Dioxide Anion Gap BUN Creatinine Estim Creat Clear Calc Est GFR (MDRD) Af Amer Est GFR (MDRD) Non-Af BUN/Creatinine Ratio Glucose Calcium Troponin I < 0.015 < 0.015 B-Natriuretic Peptide 11/01/17 06:09 WBC RBC Hgb Hct MCV MCH MCHC RDW RDW Differential Plt Count MPV Immature Gran % (Auto) Neut % (Auto) Lymph % (Auto) [place] % (Auto) Eos % (Auto) Baso % (Auto) Absolute Neuts (auto) Absolute Lymphs (auto) Total Counted Differential Comment Diff Path Review Platelet Estimate Acanthocytes (Spur) Specimen Type Sample Site pH Bicarbonate Actual POC Total CO2 Base Excess O2 Saturation ABG pCO2 ABG pO2 Serjio Test O2 Delivery Device Liter Flow Blood Gas Notified Whom Blood Gas Notified Time Sodium 141 Potassium 3.6 Chloride 111 H Carbon Dioxide 20.0 L Anion Gap 10 BUN 22 H Creatinine 1.35 H Estim Creat Clear Calc 58.35 Est GFR (MDRD) Af Amer 67 Est GFR (MDRD) Non-Af 55 L BUN/Creatinine Ratio 16.3 Glucose 133 H Calcium 8.3 L Troponin I B-Natriuretic Peptide Clinical Impression(s) from Imaging Studies Chest X-Ray 10/22/17 08:41 IMPRESSION: Left lower lobe airspace disease could represent residual infiltrate Electronically Signed: Zachary Whitfield DO at 9:39 EDT Tel , Service support , Abdomen/Pelvis CT 10/30/17 05:00 IMPRESSION: Bibasilar atelectasis. Status post splenectomy. Mildly dilated gallbladder containing multiple tiny gallstones or sludge. 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 Diffusely thickened urinary bladder. A Orozco catheter is seen within. Moderate degree of the left hydronephrosis and hydroureter down to the ureterovesical junction. Electronically Signed: Jesus Huang MD at 8:56 EDT Tel [phone], Service support , Chest CT 10/30/17 05:00 IMPRESSION: Findings suggestive bibasilar atelectasis. Mild degree of increased markings in the right upper lobe and lingular segment of the left upper lobe as well. Electronically Signed: Jesus Huang MD at 8:59 EDT Tel [phone], Service support , Chest CTA 10/31/17 15:42 IMPRESSION: Limited study due to poor enhancement of the pulmonary arterial tree. There is no demonstrated pulmonary embolism. There is mild dilatation of the main pulmonary artery measuring up to 3.1 cm, which may be associated with pulmonary hypertension. Coronary arterial calcifications are present. Bibasilar atelectasis. Minimal left-sided effusion. Electronically Signed: Kaden Sahu MD at 19:06 EDT , Service support , Assessment/Plan All Active Problems Shortness of breath (Acute) Acute deep vein thrombosis (DVT) (Acute) Acute DVT of left tibial vein (Acute) RECOMMENDATIONS: 1. The importance of the use of his incentive spirometer was emphasized to the patient at length. 2. Wean supplemental oxygen to maintain saturations at or above 90%. 3. Ambulate patient as tolerated. Encourage use of incentive spirometer at least 10 times per hour. 4. Surface echocardiogram is currently pending. IMPRESSIONS: 1. Acute hypoxemic respiratory insufficiency Clinical suspicion for underlying VQ mismatch due to bilateral atelectasis. Recommend aggressive bronchopulmonary hygiene in the form of incentive spirometry at least 10 times per hour. Wean supplemental oxygen to maintain saturations at or above 90%. Encourage aggressive ambulation. Continue nocturnal CPAP therapy, as the positive pressure will also aid in alveolar recruitment. 2. Obstructive sleep apnea on CPAP Continue nocturnal CPAP therapy per outpatient regimen. 3. Invasive bladder tumor status post resection Urology following. Pathology results are currently pending. 4. Personal history of non-Hodgkin's lymphoma/chronic venous insufficiency/obesity Complicates care, management, recovery and prognosis. This note was generated with Gondolaation software. It may contain incorrect words, spelling, and punctuation that were not noted in checking the note before signing. Code Visit Inpatient E&M: 15869 Init Hosp L3
[2017-11-01 09:00] VITALS: BP 128/68; PULSE 73; RESP 20; TEMP 36.4; O2SAT 94
[2017-11-01] MEDS: 0.9% NaCl Peripheral Flush Adult/Peds IV (09:09)
--- NOTE | 2017-11-01 09:36 | PCM.PN.HOSP ---
Patient Problems: Active and Suspected Problems Shortness of breath (Acute) Subjective: Patient seen and examined. He remains short of breath and had to be bumped up to 8 L of oxygen overnight. He was currently on 6 L at time of review. Patient denies any cough, chest pain, lightheadedness or dizziness, abdominal pain, diarrhea vomiting. 12 point review of systems otherwise negative. Labs and vitals reviewed. Of note, CT PE done yesterday was negative for PE. However she had a slightly dilated pulmonary artery of about 3.1 cm which may be indicated for pulmonary hypertension. 2D echo ordered and is pending. Home on board. Patient states he has been using his incentive spirometer but per discussion with nurse, patient does not use it at all and this is forced to. Patient also just lies in bed and makes little effort to mobilise despite being counselled about importance of mobilising. Neurology consulted. Vitals/I&O's: Vital Signs Temp Pulse Resp BP Pulse Ox 98 F 62 20 H 128/68 H 94 11/01/17 02:30 11/01/17 07:24 11/01/17 07:24 11/01/17 02:30 11/01/17 07:24 Oxygen Flow Rate (L/min) [ 4 AMBULATION with Oxygen] Oxygen Flow Rate (L/min) [At 0 REST on Room Air] Oxygen Flow Rate (L/min) 6 Oxygen Delivery Method Nasal Cannula Weight: 270 lb 1.06 oz Body Mass Index (BMI) 34.7 Intake and Output for Last 24 Hours 10/30/17 10/31/17 11/01/17 23:59 23:59 23:59 Intake Total 2425 / 2425 1996 405 / 405 Output Total 2600 / 2600 2620 / 2620 600 / 600 Balance -175 / -175 -623 / -623 -195 / -195 General: Alert, Oriented x3, Cooperative, No apparent distress HEENT: Atraumatic, PERRLA, EOMI, Normocephalic Oral: Moist Mucosa Neck: Supple, No JVD, Negative Carotid Bruits Lungs: - - coarse crackles in mid and lower lung prater bibasally. No wheezes or rhonchi auscultated. Cardiovascular: Regular rate, Regular Rhythm, Normal S1, Normal S2, No murmurs Abdomen: Bowel Sounds Present, Soft, Non Tender, Non-Distended, No Hepato-splenomegaly, Obese Extremities: No clubbing, No cyanosis, Capillary Refill Less than 3 Seconds, - - mild 1+ bilateral pitting pedal edema. Skin: No rashes, No breakdown Musculoskeletal: No Tenderness to Palpation of Joints or Extremities Lymphatic: No Cervical, Supraclavicular, or Inguinal Adenopathy Neurological: Cranial nerves II-XII grossly intact, Neuro grossly intact, Motor Exam 5/5 strength throughout Psych/Mental Status: Normal Affect, Appropriate, Alert and oriented to time, place, person, mood and affect Laboratory Results 10/31/17 15:05: Specimen Type ART, Sample Site R Radial, pH 7.35, Bicarbonate Actual 20.6 L, POC Total CO2 22, Base Excess -5 L, O2 Saturation 87 L, ABG pCO2 37.6, ABG pO2 56 L, Serjio Test POS, O2 Delivery Device Nasal Can, Liter Flow 5.0, Blood Gas Notified Whom DENAE CRAWFORD, Blood Gas Notified Time 1458 10/31/17 15:15: B-Natriuretic Peptide 85.8 10/31/17 15:15: Sodium 142, Potassium 4.0, Chloride 111 H, Carbon Dioxide 23.0, Anion Gap 8, BUN 24 H, Creatinine 1.45 H, Estim Creat Clear Calc 54.33, Est GFR (MDRD) Af Amer 62, Est GFR (MDRD) Non-Af 51 L, BUN/Creatinine Ratio 16.6, Glucose 114 H, Calcium 8.4 L 10/31/17 15:15: WBC 14.1 H, RBC 3.18 L, Hgb 9.8 L, Hct 31.4 L, MCV 98.7 H, MCH 30.8, MCHC 31.2 L, RDW 14.5, RDW Differential 53.2 H, Plt Count 270, MPV 9.5, Immature Gran % (Auto) 0.200, Neut % (Auto) 63.9, Lymph % (Auto) 17.4 L, [place] % (Auto) 15.9 H, Eos % (Auto) 2.3, Baso % (Auto) 0.3, Absolute Neuts (auto) 9.0 H, Absolute Lymphs (auto) 2.46, Total Counted Not Reportable, Differential Comment SCANNED, Diff Path Review June foll, Platelet Estimate ADEQUATE, Acanthocytes (Spur) RARE 10/31/17 15:15: Sodium 142, Potassium 4.2, Chloride 111 H, Carbon Dioxide 23.0, Anion Gap 8, BUN 24 H, Creatinine 1.43 H, Estim Creat Clear Calc 55.09, Est GFR (MDRD) Af Amer 63, Est GFR (MDRD) Non-Af 52 L, BUN/Creatinine Ratio 16.8, Glucose 114 H, Calcium 8.1 L 10/31/17 15:15: Troponin I < 0.015 10/31/17 19:05: Troponin I < 0.015 10/31/17 22:00: Troponin I < 0.015 11/01/17 06:09: WBC 9.2, RBC 3.06 L, Hgb 9.3 L, Hct 30.0 L, MCV 98.0 H, MCH 30.4, MCHC 31.0 L, RDW 14.7 H, RDW Differential 52.5 H, Plt Count 248, MPV 9.5, Immature Gran % (Auto) 0.100, Neut % (Auto) 48.1, Lymph % (Auto) 26.0, [place] % (Auto) 19.2 H, Eos % (Auto) 6.3 H, Baso % (Auto) 0.3, Absolute Neuts (auto) 4.5, Absolute Lymphs (auto) 2.40, Total Counted Not Reportable 11/01/17 06:09: Sodium 141, Potassium 3.6, Chloride 111 H, Carbon Dioxide 20.0 L, Anion Gap 10, BUN 22 H, Creatinine 1.35 H, Estim Creat Clear Calc 58.35, Est GFR (MDRD) Af Amer 67, Est GFR (MDRD) Non-Af 55 L, BUN/Creatinine Ratio 16.3, Glucose 133 H, Calcium 8.3 L Diagnostic Data Chest X-Ray 10/22/17 08:41 IMPRESSION: Left lower lobe airspace disease could represent residual infiltrate Electronically Signed: Zachary Whitfield DO at 9:39 EDT Tel , Service support , Abdomen/Pelvis CT 10/30/17 05:00 IMPRESSION: Bibasilar atelectasis. Status post splenectomy. Mildly dilated gallbladder containing multiple tiny gallstones or sludge. 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 Diffusely thickened urinary bladder. A Orozco catheter is seen within. Moderate degree of the left hydronephrosis and hydroureter down to the ureterovesical junction. Electronically Signed: Jesus Huang MD at 8:56 EDT Tel [phone], Service support , Chest CT 10/30/17 05:00 IMPRESSION: Findings suggestive bibasilar atelectasis. Mild degree of increased markings in the right upper lobe and lingular segment of the left upper lobe as well. Electronically Signed: Jesus Huang MD at 8:59 EDT Tel [phone], Service support , Chest CTA 10/31/17 15:42 IMPRESSION: Limited study due to poor enhancement of the pulmonary arterial tree. There is no demonstrated pulmonary embolism. There is mild dilatation of the main pulmonary artery measuring up to 3.1 cm, which may be associated with pulmonary hypertension. Coronary arterial calcifications are present. Bibasilar atelectasis. Minimal left-sided effusion. Electronically Signed: Kaden Sahu MD at 19:06 EDT , Service support , Current Medications Acetaminophen (Tylenol) 500 mg PO Q4H PRN PRN PRN Reason: pain Last Admin: 10/29/17 22:12 Dose: 500 mg Albuterol Sulfate (Ventolin Aerosols) 2.5 mg INHALATION Q6HWA.RT PATRICIA Last Admin: 11/01/17 07:24 Dose: 2.5 mg Amlodipine Besylate (Norvasc) 10 mg PO QHS PATRICIA Last Admin: 10/31/17 21:33 Dose: 10 mg Ciprofloxacin HCl (Cipro) 500 mg PO BID PATRICIA Last Admin: 10/31/17 21:33 Dose: 500 mg Cyclobenzaprine HCl (Cyclobenzaprine Hcl) 5 mg PO TID PRN PRN Reason: SPASMS Docusate Sodium (Colace) 100 mg PO BID [facility] Last Admin: 10/31/17 21:33 Dose: 100 mg Heparin Sodium (Porcine) (Heparin Na) 5,000 unit SC Q12 [facility] Last Admin: 10/31/17 21:33 Dose: 5,000 unit Ibuprofen (Motrin) 600 mg PO Q6H PRN PRN PRN Reason: PAIN Last Admin: 10/31/17 14:54 Dose: 600 mg Oxycodone HCl (Oxyir) 5 mg PO Q4H PRN PRN PRN Reason: Pain Last Admin: 11/01/17 09:08 Dose: 5 mg Pantoprazole Sodium (Protonix) 40 mg PO DAILY [facility] Last Admin: 10/31/17 08:33 Dose: 40 mg Sodium Chloride () 5 - 30 ml IV UD PRN PRN Reason: SALINE FLUSH Last Admin: 11/01/17 09:09 Dose: 10 ml Tamsulosin HCl (Flomax) 0.4 mg PO DAILY@1730 [facility] Last Admin: 10/31/17 17:27 Dose: 0.4 mg Medical Necessity - Tobacco Use Smoking Status: Never smoker Tobacco Use: Secondhand Assessment/Plan All Active Problems Shortness of breath (Acute) Acute deep vein thrombosis (DVT) (Acute) Acute DVT of left tibial vein (Acute) 72-year-old male with a history of respiratory failure due to pneumonia, GLEN on CPAP and recent history of TURP due to invasive bladder tumor most likely cancer. Hospitalist service was consulted on account of worsening shortness of breath and increasing oxygen requirements. 1. Acute hypoxic respiratory failure likely due to atelectasis and suspected pulmonary hypertension' CT angiogram was negative for PE and showed bibasilar atelectasis and mildly dilated pulmonary artery of 3.1cm. EKG showed no acute ST changes troponin x 3 were negative. required 8L of oxygen overnight; on 6L at time of review this morning BNP was 85. 2D echo pending patient counseled to aggressively use incentive spirometer. Pulmonology consulted. Will benefit from respiratory therapy. Patient encouraged to mobilize. duplex of LEs still pending breathing treatments with duonebs 2. 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 Duplex ordered and is pending. 3. Invasive bladder tumor s/p partial resection likely malignant, per urology management as per urology on flomax 4. GAEL: baseline Cr is <1. Cr was 1.26 on admission and trended up to 1.45. Now down to 1.35 with IVF administration. WIll monitor 5. Hypertension: controlled. On amlodipine 10mg daily. 6. GLEN: on CPAP qhs [id number] 7. Remote History of Non Hodgkin's lymphoma: s/p treatment. stable. 8. Chronic venous insufficiency: compression stockings bilaterally DVT prophylaxis: will start heparin 5000IU sq q8 Code status: Full code. This note was generated with Mobykoation software. It may contain incorrect words, spelling, and punctuation that were not noted in checking the note before signing. Code Visit Inpatient E&M: 22245 Subs Hosp L3
[2017-11-01] MEDS: Ciprofloxacin 500 MG Tablet PO ×2 (11:12→22:05)
[2017-11-01] MEDS: Docusate Sodium 100 MG Capsule PO ×2 (11:12→22:05)
[2017-11-01] MEDS: Pantoprazole Sodium 40 MG Tablet PO (11:13)
[2017-11-01] MEDS: Heparin Injection (Vial) 5,000 UNIT/ML VIAL 5000 UNIT SC ×2 (11:13→22:05)
[2017-11-01 12:56] VITALS: PULSE 68; RESP 22
[2017-11-01 15:52] VITALS: BP 115/62; PULSE 73; RESP 20; TEMP 36.9; O2SAT 99
[2017-11-01] MEDS: Tamsulosin HCl 0.4 MG Capsule PO (16:05)
[2017-11-01] MEDS: Ibuprofen 600 MG Tablet PO (16:05)
--- NOTE | 2017-11-01 18:58 | NURSING ---
Pt states he has been using I.S frequently throughout the day. Took one good walk in [place] despite education and encouragement to ambulate frequently in [place].
[2017-11-01 21:58] VITALS: BP 106/54; PULSE 74; RESP 18; TEMP 36.8; O2SAT 95
[2017-11-01] MEDS: amLODIPine 10 MG Tablet PO (22:05)
[2017-11-02] VITALS (12 sets, daily range): BP systolic 115–127; BP diastolic 51–73; PULSE 67–82; RESP 16–20; TEMP 36.8–37.1; O2SAT 90–98
[2017-11-02 06:22] LABS: Absolute Lymphocyte Count 1.94 X10^3/ul (0.83-4.51); Absolute Neutrophil Count 4.9 X10^3/uL (2.0-7.7); Basophil# 0.05 X10^3/uL; Basophil% 0.6 % (0-1); Eosinophil# 0.62 X10^3/uL; Eosinophils% 6.8 % (0-5); Hematocrit 29.4 % (40-54); Hemoglobin 9.4 g/dl (13.0-16.5); Lymphocyte # 1.94 X10^3/ul (4.0); Lymphocyte % 21.3 % (19-41); Mean Corpuscular Hgb 31.6 pg (27.0-32.0); Mean Platelet Vol. 9.9 fl (6.2-12.0); Monocyte# 1.53 X10^3/uL; Monocyte% 16.8 % (0-10); Neutrophil # 4.91 X10^3/uL (2.7-7.7); Neutrophil % 54.1 % (47-70); Platelet Count 270 K/mm3 (150-450); RBC Distribution Width CV 14.4 % (11.6-14.6); RBC Distribution Width SD 49.7 fl (35.1-43.9); Red Blood Count 2.97 M/mm3 (4.6-6.2); White Blood Count 9.1 K/mm3 (4.4-11.0)
[2017-11-02 06:41] LABS: POSITIVE DIFFERENTIAL YES
[2017-11-02 06:42] LABS: Differential Indicated SCAN CRITERIA MET; POSITIVE COUNT NO; POSITIVE MORPHOLOGY NO
[2017-11-02] MEDS: Albuterol 2.5 MG/3 ML VIAL.NEB. INHALATION ×3 (06:42→18:54)
[2017-11-02 06:43] LABS: Anion Gap 11 (5-15); BUN 22 mg/dL (7-18); BUN/Creat Ratio 16.4 RATIO (10-20); Calcium,Total 8.6 mg/dL (8.5-10.1); Chloride 110 mmol/L (98-107); Creatinine, Serum 1.34 mg/dL (0.70-1.30); EST Glomerular Filtration Rate 56 mL/min (>60); Est Glom Filt Rate - Afr Amer 67 mL/min (>60); Estimated Creatinine Clearance 58.79 ml/min; Glucose 110 mg/dL (74-106); Potassium 4.1 mmol/L (3.5-5.1); Sodium Level 143 mmol/L (136-145)
[2017-11-02 07:08] LABS: Differential Comment SCANNED
[2017-11-02] MEDS: Ibuprofen 600 MG Tablet PO ×3 (07:51→21:55)
--- NOTE | 2017-11-02 08:23 | PCM.PROGNOTE ---
Patient Problems: Active and Suspected Problems Shortness of breath (Acute) Subjective: The patient was seen and examined at the bedside this morning. Events from the last 24 hours have been reviewed. The patient is currently afebrile, hemodynamically stable and maintaining appropriate oxygen saturations on 3 L/min via nasal cannula. The patient is without any significant complaints and is anxious to be discharged home. Objective: The patient's most recent lab work, culture data and imaging studies have all been personally reviewed. - Physical Exam General: Alert, Oriented x3, Cooperative, No apparent distress HEENT: Atraumatic, PERRLA, Normocephalic Oral: No Gingival or Mucosal Lesions/ Ulcerations Neck: Supple, No Nodes, Trachea Midline Lungs: No rhonchi, No wheeze, No rales, Diminished Cardiovascular: Regular rate, Regular Rhythm, Normal S1, Normal S2, No murmurs Abdomen: Bowel Sounds Present, Soft, Non Tender, Obese Extremities: No clubbing, No cyanosis, Edema Skin: - - Lower extremity venous stasis dermatitis Musculoskeletal: No Muscle Wasting Lymphatic: No Cervical, Supraclavicular, or Inguinal Adenopathy Neurological: Neuro grossly intact Psych/Mental Status: Alert and oriented to time, place, person, mood and affect Vital Signs Temp Pulse Resp BP Pulse Ox 98.3 F 78 18 126/73 H 95 11/02/17 07:42 11/02/17 07:42 11/02/17 07:42 11/02/17 07:42 11/02/17 07:42 Oxygen Flow Rate (L/min) [ 4 AMBULATION with Oxygen] Oxygen Flow Rate (L/min) [At 0 REST on Room Air] Oxygen Flow Rate (L/min) 4 Oxygen Delivery Method Room Air Weight: 270 lb 1.06 oz Body Mass Index (BMI) 34.7 Intake and Output for Last 24 Hours 10/31/17 11/01/17 11/02/17 23:59 23:59 23:59 Intake Total 1996 765 / 765 240 / 240 Output Total 2620 / 2620 1200 / 1200 1550 / 1550 Balance -623 / -623 -435 / -435 -1310 / -1310 Laboratory Tests Past 24 Hrs 11/02/17 11/02/17 05:45 05:45 WBC 9.1 RBC 2.97 L Hgb 9.4 L Hct 29.4 L MCV 99.0 H MCH 31.6 MCHC 32.0 RDW 14.4 RDW Differential 49.7 H Plt Count 270 MPV 9.9 Immature Gran % (Auto) 0.400 Neut % (Auto) 54.1 Lymph % (Auto) 21.3 Real % (Auto) 16.8 H Eos % (Auto) 6.8 H Baso % (Auto) 0.6 Absolute Neuts (auto) 4.9 Absolute Lymphs (auto) 1.94 Total Counted Not Reportable Differential Comment SCANNED Sodium 143 Potassium 4.1 Chloride 110 H Carbon Dioxide 22.0 Anion Gap 11 BUN 22 H Creatinine 1.34 H Estim Creat Clear Calc 58.79 Est GFR (MDRD) Af Amer 67 Est GFR (MDRD) Non-Af 56 L BUN/Creatinine Ratio 16.4 Glucose 110 H Calcium 8.6 Clinical Impression(s) from Imaging Studies Chest X-Ray 10/22/17 08:41 IMPRESSION: Left lower lobe airspace disease could represent residual infiltrate Electronically Signed: Zachary Whitfield DO at 9:39 EDT Tel , Service support , Abdomen/Pelvis CT 10/30/17 05:00 IMPRESSION: Bibasilar atelectasis. Status post splenectomy. Mildly dilated gallbladder containing multiple tiny gallstones or sludge. 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 Diffusely thickened urinary bladder. A Orozco catheter is seen within. Moderate degree of the left hydronephrosis and hydroureter down to the ureterovesical junction. Electronically Signed: Jesus Huang MD at 8:56 EDT Tel [phone], Service support , Chest CT 10/30/17 05:00 IMPRESSION: Findings suggestive bibasilar atelectasis. Mild degree of increased markings in the right upper lobe and lingular segment of the left upper lobe as well. Electronically Signed: Jesus Huang MD at 8:59 EDT Tel [phone], Service support , Chest CTA 10/31/17 15:42 IMPRESSION: Limited study due to poor enhancement of the pulmonary arterial tree. There is no demonstrated pulmonary embolism. There is mild dilatation of the main pulmonary artery measuring up to 3.1 cm, which may be associated with pulmonary hypertension. Coronary arterial calcifications are present. Bibasilar atelectasis. Minimal left-sided effusion. Electronically Signed: Kaden Sahu MD at 19:06 EDT , Service support , Medical Necessity - Tobacco Use Smoking Status: Never smoker Tobacco Use: Secondhand Assessment/Plan All Active Problems Shortness of breath (Acute) Acute deep vein thrombosis (DVT) (Acute) Acute DVT of left tibial vein (Acute) RECOMMENDATIONS: 1. The importance of the use of his incentive spirometer was emphasized to the patient at length. 2. Wean supplemental oxygen to maintain saturations at or above 90%. 3. Ambulate patient as tolerated. Encourage use of incentive spirometer at least 10 times per hour. 4. Surface echocardiogram is currently pending. IMPRESSIONS: 1. Acute hypoxemic respiratory insufficiency Clinical suspicion for underlying VQ mismatch due to bilateral atelectasis. Recommend aggressive bronchopulmonary hygiene in the form of incentive spirometry at least 10 times per hour. Wean supplemental oxygen to maintain saturations at or above 90%. Encourage aggressive ambulation. Continue nocturnal CPAP therapy, as the positive pressure will also aid in alveolar recruitment. 2. Obstructive sleep apnea on CPAP Continue nocturnal CPAP therapy per outpatient regimen. 3. Invasive bladder tumor status post resection Urology following. Pathology results are currently pending. 4. Personal history of non-Hodgkin's lymphoma/chronic venous insufficiency/obesity Complicates care, management, recovery and prognosis. This note was generated with [employer] software. It may contain incorrect words, spelling, and punctuation that were not noted in checking the note before signing. Code Visit Inpatient E&M: 50135 Subs Hosp L2
[2017-11-02] MEDS: Docusate Sodium 100 MG Capsule PO (09:37)
[2017-11-02] MEDS: Ciprofloxacin 500 MG Tablet PO (09:37)
[2017-11-02] MEDS: Heparin Injection (Vial) 5,000 UNIT/ML VIAL 5000 UNIT SC ×2 (09:37→21:51)
[2017-11-02] MEDS: Pantoprazole Sodium 40 MG Tablet PO (09:39)
--- NOTE | 2017-11-02 11:16 | PCM.PN.HOSP ---
Patient Problems: Active and Suspected Problems Shortness of breath (Acute) Subjective: Patient has not moved bowel for 4-5 days. Patient has Orozco catheter. Urinary tube shows pus flakes, turbid urine. No clinical significant hematuria. Patient on 3-4 L of oxygen. He denies history of chronic lung disease and is smoking but has a history of 3-4 incidences of pneumonia in the past. Chest x-ray and CTA reviewed Vitals/I&O's: Vital Signs Temp Pulse Resp BP Pulse Ox 98.3 F 78 18 126/73 H 95 11/02/17 07:42 11/02/17 07:42 11/02/17 07:42 11/02/17 07:42 11/02/17 07:42 Oxygen Flow Rate (L/min) [ 4 AMBULATION with Oxygen] Oxygen Flow Rate (L/min) [At 0 REST on Room Air] Oxygen Flow Rate (L/min) 4 Oxygen Delivery Method Room Air Weight: 270 lb 1.06 oz Body Mass Index (BMI) 34.7 Intake and Output for Last 24 Hours 10/31/17 11/01/17 11/02/17 23:59 23:59 23:59 Intake Total 1996 765 / 765 240 / 240 Output Total 2620 / 2620 1200 / 1200 1550 / 1550 Balance -623 / -623 -435 / -435 -1310 / -1310 General: Alert, Oriented x3, Cooperative HEENT: Atraumatic, PERRLA, EOMI, Normocephalic Neck: Supple, No JVD, Negative Carotid Bruits Lungs: No rhonchi, No wheeze, No rales, Diminished - In bilateral lung bases Cardiovascular: Regular rate, Regular Rhythm, Normal S1, Normal S2, No murmurs, - - Both lower legs, left more than right was venous hypertension with grayish to purple discoloration, chronic thickening of the skin. Abdomen: Bowel Sounds Present, Soft, Non Tender, - - Orozco catheter Extremities: Capillary Refill Less than 3 Seconds, Edema Skin: No rashes, No breakdown Musculoskeletal: No Tenderness to Palpation of Joints or Extremities Neurological: Cranial nerves II-XII grossly intact Psych/Mental Status: Normal Affect, Appropriate Laboratory Results 11/02/17 05:45: WBC 9.1, RBC 2.97 L, Hgb 9.4 L, Hct 29.4 L, MCV 99.0 H, MCH 31.6, MCHC 32.0, RDW 14.4, RDW Differential 49.7 H, Plt Count 270, MPV 9.9, Immature Gran % (Auto) 0.400, Neut % (Auto) 54.1, Lymph % (Auto) 21.3, Barry % (Auto) 16.8 H, Eos % (Auto) 6.8 H, Baso % (Auto) 0.6, Absolute Neuts (auto) 4.9, Absolute Lymphs (auto) 1.94, Total Counted Not Reportable, Differential Comment SCANNED 11/02/17 05:45: Sodium 143, Potassium 4.1, Chloride 110 H, Carbon Dioxide 22.0, Anion Gap 11, BUN 22 H, Creatinine 1.34 H, Estim Creat Clear Calc 58.79, Est GFR (MDRD) Af Amer 67, Est GFR (MDRD) Non-Af 56 L, BUN/Creatinine Ratio 16.4, Glucose 110 H, Calcium 8.6 Current Medications Acetaminophen (Tylenol) 500 mg PO Q4H PRN PRN PRN Reason: pain Last Admin: 10/29/17 22:12 Dose: 500 mg Albuterol Sulfate (Ventolin Aerosols) 2.5 mg INHALATION Q6HWA.RT [facility] Last Admin: 11/01/17 19:26 Dose: 2.5 mg Amlodipine Besylate (Norvasc) 10 mg PO QHS [facility] Last Admin: 11/01/17 22:05 Dose: 10 mg Ciprofloxacin HCl (Cipro) 500 mg PO BID [facility] Last Admin: 11/02/17 09:37 Dose: 500 mg Cyclobenzaprine HCl (Cyclobenzaprine Hcl) 5 mg PO TID PRN PRN Reason: SPASMS Docusate Sodium (Colace) 100 mg PO BID [facility] Last Admin: 11/02/17 09:37 Dose: 100 mg Heparin Sodium (Porcine) (Heparin Na) 5,000 unit SC Q12 [facility] Last Admin: 11/02/17 09:37 Dose: 5,000 unit Ibuprofen (Motrin) 600 mg PO Q6H PRN PRN PRN Reason: PAIN Last Admin: 11/02/17 07:51 Dose: 600 mg Oxycodone HCl (Oxyir) 5 mg PO Q4H PRN PRN PRN Reason: Pain Last Admin: 11/01/17 22:12 Dose: 5 mg Pantoprazole Sodium (Protonix) 40 mg PO DAILY [facility] Last Admin: 11/02/17 09:39 Dose: 40 mg Sodium Chloride () 5 - 30 ml IV UD PRN PRN Reason: SALINE FLUSH Last Admin: 11/01/17 09:09 Dose: 10 ml Tamsulosin HCl (Flomax) 0.4 mg PO DAILY@1730 [facility] Last Admin: 11/01/17 16:05 Dose: 0.4 mg Medical Necessity - Tobacco Use Smoking Status: Never smoker Tobacco Use: Secondhand Assessment/Plan All Active Problems Shortness of breath (Acute) Acute deep vein thrombosis (DVT) (Acute) Acute DVT of left tibial vein (Acute) 72-year-old male with a history pneumonia, GLEN on CPAP, chronic varicose vein/venous insufficiency and recent history of TURP due to invasive bladder tumor most likely cancer. Hospitalist service was consulted on account of worsening shortness of breath and increasing oxygen requirements. 1. Acute hypoxic respiratory failure likely due to atelectasis CT angiogram was negative for PE and showed bibasilar atelectasis and mildly dilated pulmonary artery of 3.1cm. EKG showed no acute ST changes troponin x 3 were negative. required 8L of oxygen; tapered down to 3 12/min. BNP was 85. 2D echo pending patient counseled to aggressively use incentive spirometer. Pulmonology consult reviewed.. Patient encouraged to mobilize. duplex of LEs still pending 2. 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 Duplex ordered and is pending. 3. Invasive bladder tumor s/p partial resection likely malignant, per urology management as per urology on flomax UA with reflex urine culture ordered. Patient is on Cipro for suspected UTI. No current UA or urine culture. Previous urine culture of October 19, 2017 shows presumptive E. coli, resistant to Cipro. Change antibiotic to Rocephin. Discontinue Cipro. 4. GAEL: baseline Cr is <1. Cr was 1.26 on admission and trended up to 1.45. Currently 1.34. 5. Hypertension: controlled. On amlodipine 10mg daily. 6. GLEN: on CPAP qhs 14cm H20 7. Remote History of Non Hodgkin's lymphoma: s/p treatment. stable. 8. Chronic venous insufficiency status post venous stripping surgery on left leg: Previous venous Doppler of November 2015 shows valvular competence bilaterally. Compression stockings bilaterally DVT prophylaxis: heparin 5000IU sq q8 Code status: Full code. Laboratory Results 11/02/17 05:45: WBC 9.1, RBC 2.97 L, Hgb 9.4 L, Hct 29.4 L, MCV 99.0 H, MCH 31.6, MCHC 32.0, RDW 14.4, RDW Differential 49.7 H, Plt Count 270, MPV 9.9, Immature Gran % (Auto) 0.400, Neut % (Auto) 54.1, Lymph % (Auto) 21.3, Barry % (Auto) 16.8 H, Eos % (Auto) 6.8 H, Baso % (Auto) 0.6, Absolute Neuts (auto) 4.9, Absolute Lymphs (auto) 1.94, Total Counted Not Reportable, Differential Comment SCANNED 11/02/17 05:45: Sodium 143, Potassium 4.1, Chloride 110 H, Carbon Dioxide 22.0, Anion Gap 11, BUN 22 H, Creatinine 1.34 H, Estim Creat Clear Calc 58.79, Est GFR (MDRD) Af Amer 67, Est GFR (MDRD) Non-Af 56 L, BUN/Creatinine Ratio 16.4, Glucose 110 H, Calcium 8.6 Clinical Impression(s) from Imaging Studies Abdomen/Pelvis CT 10/30/17 05:00 IMPRESSION: Bibasilar atelectasis. Status post splenectomy. Mildly dilated gallbladder containing multiple tiny gallstones or sludge. 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 Diffusely thickened urinary bladder. A Orozco catheter is seen within. Moderate degree of the left hydronephrosis and hydroureter down to the ureterovesical junction. Chest CT 10/30/17 05:00 IMPRESSION: Findings suggestive bibasilar atelectasis. Mild degree of increased markings in the right upper lobe and lingular segment of the left upper lobe as well. Chest CTA 10/31/17 15:42 IMPRESSION: Limited study due to poor enhancement of the pulmonary arterial tree. There is no demonstrated pulmonary embolism. There is mild dilatation of the main pulmonary artery measuring up to 3.1 cm, which may be associated with pulmonary hypertension. Coronary arterial calcifications are present. Bibasilar atelectasis. Minimal left-sided effusion. Active Medications Acetaminophen (Tylenol) 500 mg PO Q4H PRN PRN PRN Reason: pain Last Admin: 10/29/17 22:12 Dose: 500 mg Albuterol Sulfate (Ventolin Aerosols) 2.5 mg INHALATION Q6HWA.RT [facility] Last Admin: 11/01/17 19:26 Dose: 2.5 mg Amlodipine Besylate (Norvasc) 10 mg PO QHS [facility] Last Admin: 11/01/17 22:05 Dose: 10 mg Ciprofloxacin HCl (Cipro) 500 mg PO BID [facility] Last Admin: 11/02/17 09:37 Dose: 500 mg Cyclobenzaprine HCl (Cyclobenzaprine Hcl) 5 mg PO TID PRN PRN Reason: SPASMS Docusate Sodium (Colace) 100 mg PO BID [facility] Last Admin: 11/02/17 09:37 Dose: 100 mg Heparin Sodium (Porcine) (Heparin Na) 5,000 unit SC Q12 [facility] Last Admin: 11/02/17 09:37 Dose: 5,000 unit Ibuprofen (Motrin) 600 mg PO Q6H PRN PRN PRN Reason: PAIN Last Admin: 11/02/17 07:51 Dose: 600 mg Oxycodone HCl (Oxyir) 5 mg PO Q4H PRN PRN PRN Reason: Pain Last Admin: 11/01/17 22:12 Dose: 5 mg Pantoprazole Sodium (Protonix) 40 mg PO DAILY [facility] Last Admin: 11/02/17 09:39 Dose: 40 mg Sodium Chloride () 5 - 30 ml IV UD PRN PRN Reason: SALINE FLUSH Last Admin: 11/01/17 09:09 Dose: 10 ml Tamsulosin HCl (Flomax) 0.4 mg PO DAILY@1730 [facility] Last Admin: 11/01/17 16:05 Dose: 0.4 mg Code Visit Inpatient E&M: [address] [facility] Hosp L3
--- NOTE | 2017-11-02 12:36 | NURSING ---
O2 DECREASED TO 1L NC
[2017-11-02] MEDS: 0.9% NaCl Peripheral Flush Adult/Peds IV ×2 (14:26→21:52)
[2017-11-02] MEDS: Ceftriaxone 1 GM/50 ML BAG IV (14:26)
[2017-11-02 14:48] LABS: Mucous, Urine 0 SEEN /hpf (<or=2+); Red Blood Cells-Urine 0 SEEN /hpf (0-5); Squamous Epithelial Cells - UA 0 SEEN /hpf (0-5)
[2017-11-02 14:50] LABS: Color, Urine Yellow (Yellow); Glucose, Dipstick Normal (Normal); Ketone-Dipstick Negative (Negative); Leukocyte Esterase-Dipstick 500 /ul (Negative); Nitrite-Dipstick Positive (Negative); Occult Blood-Urine 250 /ul (Negative); Protein-Dipstick 100 mg/dl (Negative); Specific Gravity, Urine 1.015 (1.002-1.030); Urine Bilirubin Dipstick Negative (Negative); Urine Clarity Clear (Clear); Urine Urobilinogen Normal (Normal)
[2017-11-02 15:02] LABS: Bacteria 2+ /hpf (None Seen); White Blood Cells >100 SEEN /hpf (0-5)
[2017-11-02 15:03] LABS: Yeast-Urine 2+ /hpf (None Seen)
[2017-11-02] MEDS: Tamsulosin HCl 0.4 MG Capsule PO (17:29)
[2017-11-02] MEDS: amLODIPine 10 MG Tablet PO (21:51)
[2017-11-02] MEDS: Senna/Docusate Sodium 1 Tablet 2 TABLET PO (21:51)
[2017-11-03 03:10] VITALS: BP 121/56; PULSE 78; RESP 20; TEMP 36.5; O2SAT 94
[2017-11-03] MEDS: Acetaminophen 500 MG Tablet PO (05:19)
[2017-11-03] MEDS: oxyCODONE 5 MG Tablet PO (05:20)
[2017-11-03 07:02] LABS: Absolute Lymphocyte Count 1.97 X10^3/ul (0.83-4.51); Absolute Neutrophil Count 5.1 X10^3/uL (2.0-7.7); Basophil# 0.06 X10^3/uL; Basophil% 0.6 % (0-1); Eosinophil# 0.63 X10^3/uL; Eosinophils% 6.7 % (0-5); Hematocrit 28.2 % (40-54); Lymphocyte # 1.97 X10^3/ul (4.0); Lymphocyte % 20.8 % (19-41); Mean Corp Hgb Conc 31.9 g/gl (32-36); Mean Corpuscular Hgb 31.5 pg (27.0-32.0); Mean Corpuscular Volume 98.6 fL (80-94); Monocyte# 1.66 X10^3/uL; Monocyte% 17.6 % (0-10); Platelet Count 287 K/mm3 (150-450); RBC Distribution Width CV 14.3 % (11.6-14.6); RBC Distribution Width SD 48.8 fl (35.1-43.9); Red Blood Count 2.86 M/mm3 (4.6-6.2); White Blood Count 9.5 K/mm3 (4.4-11.0)
[2017-11-03 07:07] LABS: Differential Indicated SCAN CRITERIA MET; POSITIVE COUNT NO; POSITIVE DIFFERENTIAL YES; POSITIVE MORPHOLOGY NO
[2017-11-03 07:10] VITALS: PULSE 78; RESP 16; O2SAT 92
[2017-11-03] MEDS: Albuterol 2.5 MG/3 ML VIAL.NEB. INHALATION (07:10)
[2017-11-03 07:11] LABS: Anion Gap 10 (5-15); BUN 21 mg/dL (7-18); BUN/Creat Ratio 14.2 RATIO (10-20); Calcium,Total 8.6 mg/dL (8.5-10.1); Chloride 109 mmol/L (98-107); Creatinine, Serum 1.48 mg/dL (0.70-1.30); EST Glomerular Filtration Rate 50 mL/min (>60); Est Glom Filt Rate - Afr Amer 60 mL/min (>60); Estimated Creatinine Clearance 53.23 ml/min; Glucose 131 mg/dL (74-106); Sodium Level 142 mmol/L (136-145)
--- NOTE | 2017-11-03 07:37 | PCM.PN.BLA ---
Progress Note 71-year-old male was admitted to the hospital after transurethral resection of a large bladder tumor pathology is pending he did require oxygen after the procedure finally has weaned himself off the oxygen he was 94% on room air. Today we then discontinue the Orozco catheter and will discharge patient home and will call the patient with results of the tissue report and arrange for further care.
--- NOTE | 2017-11-03 07:38 | PCM.DC.URO ---
Discharge Diet: Light diet - advance as tolerated Discharge Activity: Return to Normal Activity Call your doctor if your incision/area has: Continuous Slow Oozing, Sudden Increased Bleeding, Increased Pain/ Swelling, Increased Redness Call your doctor if you observe: Fever of 101 or Higher, Inability to have a bowel movement, Uncontrolled pain Suture Line Care: Avoid Pulling/Pushing, Avoid Pinching/Bending Allergies/Adverse Reactions: Allergies tramadol Adverse Reaction (Verified 10/22/17 08:10) SKIN RASH IV TRAMADOL Medications to take at Discharge Amlodipine [Norvasc] 10 mg PO QHS 09/06/13 Albuterol Aerosols [Ventolin Aerosols] 2.5 mg INHALATION DAILY 10/22/17 Ciprofloxacin [Cipro] 500 mg PO BID 10/22/17 Pantoprazole Sodium [Protonix] 40 mg PO DAILY 10/22/17 Tamsulosin HCl [Flomax] 0.4 mg PO DAILY 10/22/17 Ciprofloxacin [Cipro] 500 mg PO BID #14 tab 10/29/17 Hydrocodone/Acetaminophen [[place] 5-325 Tablet] 1 ea PO Q4H PRN PRN 5 Days #14 tab 10/29/17 The following prescriptions were given: Hydrocodone/Acetaminophen [Winter 5-325 Tablet] 1 ea PO Q4H PRN PRN 5 Days #14 tab PRN Reason: Pain Ciprofloxacin [Cipro] 500 mg PO BID #14 tab Primary Care Physician: Malcolm Funez [Primary Care Provider] - Test Results: Test results from this visit will be discussed in further detail at your follow-up appointment, if applicable. Please Follow Up With: Yo Puckett MD When: in 2 weeks, please call to make an appointment. Proposed Discharge Date: 10/31/17
--- NOTE | 2017-11-03 07:40 | PCM.DC.SUM ---
Discharge Date and Diagnosis - Problem List Patient Problems: Active and Suspected Problems Shortness of breath (Acute) Date of Admission: 10/29/17 Date of Discharge: 11/03/17 - Primary Discharge Diagnosis Active and Suspected Problems Shortness of breath (Acute) - Secondary Discharge Diagnosis Chronic Problems Lipodermatosclerosis (Chronic) Venous hypertension, chronic, with inflammation (Chronic) Chronic venous insufficiency (Chronic) Back pain (Chronic) Edema leg (Chronic) Leg swelling (Chronic) Localized edema (Chronic) Superficial thrombophlebitis of left leg (Chronic) Hypertension (Chronic) History of Hodgkin's disease (Chronic) History of Legionnaire's disease (Chronic) History of kidney stones (Chronic) hemosiderin staining (Chronic) Hospital Course and Treatment Hospitalist and pulmonary for postoperative requirement of oxygen Operations: - - Transurethral resection of a large bladder tumor Procedures: None Summary of Care Provided: The patient is a 71 year old male who had a Orozco catheter placed at [facility] in August it was found to be a very difficult Orozco placement he can follow-up with me in the office had a history of a prior TURP I decided to take the patient back to surgery to reevaluate the scar tissue and possible and sizes open on cystoscopy was found to have a very large bladder tumor which is a surprise was not expected this was not reported on prior cystoscopies at [facility]. He underwent a TURBT for this very large tumor appeared to be invasive. We did a CAT scan showed no clear evidence of metastatic disease. Pathology is still pending. Postoperatively required hospitalization longer than expected because of his requirement for oxygenation finally he was able to wean off oxygen and he was 94% on room air he will be discharged home today after some tests. He was seen in consultation by hospitalist service and also pulmonary. Discharge Diet: Light diet - advance as tolerated Discharge Activity: Return to Normal Activity Call your doctor if your incision/area has: Continuous Slow Oozing, Sudden Increased Bleeding, Increased Pain/ Swelling, Increased Redness Call your doctor if you observe: Fever of 101 or Higher, Inability to have a bowel movement, Uncontrolled pain Suture Line Care: Avoid Pulling/Pushing, Avoid Pinching/Bending Home Medications: Medications to take at Discharge Amlodipine [Norvasc] 10 mg PO QHS 09/06/13 Albuterol Aerosols [Ventolin Aerosols] 2.5 mg INHALATION DAILY 10/22/17 Ciprofloxacin [Cipro] 500 mg PO BID 10/22/17 Pantoprazole Sodium [Protonix] 40 mg PO DAILY 10/22/17 Tamsulosin HCl [Flomax] 0.4 mg PO DAILY 10/22/17 Ciprofloxacin [Cipro] 500 mg PO BID #14 tab 10/29/17 Hydrocodone/Acetaminophen [[place] 5-325 Tablet] 1 ea PO Q4H PRN PRN 5 Days #14 tab 10/29/17 Following Prescrptions Were Given to Patient: Hydrocodone/Acetaminophen [[place] 5-325 Tablet] 1 ea PO Q4H PRN PRN 5 Days #14 tab PRN Reason: Pain Ciprofloxacin [Cipro] 500 mg PO BID #14 tab Primary Care Physician: Malcolm Funez [Primary Care Provider] - Please Follow Up With: Yo Puckett MD When: in 2 weeks, please call to make an appointment. Medical Necessity - Tobacco Use Smoking Status: Never smoker Tobacco Use: Secondhand Meaningful Use Info Meaningful Use Diagnoses (Choose all that apply): None applicable
[2017-11-03 08:10] VITALS: BP 106/55; PULSE 79; RESP 18; TEMP 36.3; O2SAT 94
[2017-11-03] MEDS: Pantoprazole Sodium 40 MG Tablet PO (08:11)
[2017-11-03] MEDS: Heparin Injection (Vial) 5,000 UNIT/ML VIAL 5000 UNIT SC (08:12)
[2017-11-03 08:17] VITALS: O2SAT 94
--- NOTE | 2017-11-03 09:03 | PCM.PN.HOSP ---
Subjective: Seen and examined. Patient tapered off oxygen. Pulse in 70s. Sitting upright in bed. Venous Doppler shows small soleal vein thrombosis; does not need oral anticoagulant. Need thigh-high or at least knee-high MELANIE hose at home while on ambulation are upright. Discussed with the patient. Objective: eneral: Alert, Oriented x3, Cooperative HEENT: Atraumatic, PERRLA, EOMI, Normocephalic Neck: Supple, No JVD, Negative Carotid Bruits Lungs: No rhonchi, No wheeze, No rales, Diminished - In bilateral lung bases Cardiovascular: Regular rate, Regular Rhythm, Normal S1, Normal S2, No murmurs, - Both lower legs, left more than right was venous hypertension with grayish to purple discoloration, chronic thickening of the skin. Abdomen: Bowel Sounds Present, Soft, Non Tender, - - Orozco catheter draining clear irome Extremities: Capillary Refill Less than 3 Seconds, Edema Skin: No rashes, No breakdown Musculoskeletal: No Tenderness to Palpation of Joints or Extremities Neurological: Cranial nerves II-XII grossly intact Psych/Mental Status: Normal Affect, Appropriate Vitals/I&O's: Vital Signs Temp Pulse Resp BP Pulse Ox 97.4 F L 79 18 106/55 L 94 11/03/17 08:10 11/03/17 08:10 11/03/17 08:10 11/03/17 08:10 11/03/17 08:17 Oxygen Flow Rate (L/min) [ 4 AMBULATION with Oxygen] Oxygen Flow Rate (L/min) [At 0 REST on Room Air] Oxygen Flow Rate (L/min) 1 Oxygen Delivery Method Room Air Weight: 270 lb 1.06 oz Body Mass Index (BMI) 34.7 Intake and Output for Last 24 Hours 11/01/17 11/02/17 11/03/17 23:59 23:59 23:59 Intake Total 765 / 765 1770 / 1770 840 / 840 Output Total 1200 / 1200 2550 / 2550 1050 / 1050 Balance -435 / -435 -780 / -780 -210 / -210 Laboratory Results 11/02/17 14:40: Urine Color Yellow, Urine Clarity Clear, Urine pH 5.0, Ur Specific [place] 1.015, Urine Protein 100 H, Urine Glucose (UA) Normal, Urine Ketones Negative, Urine Occult Blood 250 H, Urine Nitrite Positive H, Urine Bilirubin Negative, Urine Urobilinogen Normal, Ur Leukocyte Esterase 500 H, Urine RBC 0 SEEN, Urine WBC >100 SEEN, Ur Squamous Epith Cells 0 SEEN, Urine Bacteria 2+, Urine Mucus 0 SEEN, Urine Yeast 2+ 11/03/17 06:10: WBC 9.5, RBC 2.86 L, Hgb 9.0 L, Hct 28.2 L, MCV 98.6 H, MCH 31.5, MCHC 31.9 L, RDW 14.3, RDW Differential 48.8 H, Plt Count 287, MPV 10.0, Immature Gran % (Auto) 0.300, Neut % (Auto) 54.0, Lymph % (Auto) 20.8, Polk % (Auto) 17.6 H, Eos % (Auto) 6.7 H, Baso % (Auto) 0.6, Absolute Neuts (auto) 5.1, Absolute Lymphs (auto) 1.97, Total Counted Pending 11/03/17 06:10: Sodium 142, Potassium 4.0, Chloride 109 H, Carbon Dioxide 23.0, Anion Gap 10, BUN 21 H, Creatinine 1.48 H, Estim Creat Clear Calc 53.23, Est GFR (MDRD) Af Amer 60, Est GFR (MDRD) Non-Af 50 L, BUN/Creatinine Ratio 14.2, Glucose 131 H, Calcium 8.6 Current Medications Acetaminophen (Tylenol) 500 mg PO Q4H PRN PRN PRN Reason: pain Last Admin: 11/03/17 05:19 Dose: 500 mg Albuterol Sulfate (Ventolin Aerosols) 2.5 mg INHALATION Q6HWA.RT [facility] Last Admin: 11/03/17 07:10 Dose: 2.5 mg Amlodipine Besylate (Norvasc) 10 mg PO QHS [facility] Last Admin: 11/02/17 21:51 Dose: 10 mg Bisacodyl (Dulcolax) 10 mg RECTAL DAILY PRN PRN Reason: constipation Cyclobenzaprine HCl (Cyclobenzaprine Hcl) 5 mg PO TID PRN PRN Reason: SPASMS Heparin Sodium (Porcine) (Heparin Na) 5,000 unit SC Q12 [facility] Last Admin: 11/03/17 08:12 Dose: 5,000 unit Ceftriaxone Sodium (Rocephin) 1 gm in 50 mls @ 100 mls/hr IV Q24 [facility] Last Admin: 11/02/17 14:26 Dose: 100 mls/hr Ibuprofen (Motrin) 600 mg PO Q6H PRN PRN PRN Reason: PAIN Last Admin: 11/02/17 21:55 Dose: 600 mg Oxycodone HCl (Oxyir) 5 mg PO Q4H PRN PRN PRN Reason: Pain Last Admin: 11/03/17 05:20 Dose: 5 mg Pantoprazole Sodium (Protonix) 40 mg PO DAILY [facility] Last Admin: 11/03/17 08:11 Dose: 40 mg Senna/Docusate Sodium (Senokot-S, Nagélica-Colace) 2 tablet PO BID [facility] Stop: 11/03/17 22:01 Last Admin: 11/03/17 08:11 Dose: Not Given Senna/Docusate Sodium (Senokot-S, Angélica-Colace) 2 tablet PO BID PRN PRN Reason: CONSTIPATION Sodium Chloride () 5 - 30 ml IV UD PRN PRN Reason: SALINE FLUSH Last Admin: 11/02/17 21:52 Dose: 10 ml Tamsulosin HCl (Flomax) 0.4 mg PO DAILY@1730 [facility] Last Admin: 11/02/17 17:29 Dose: 0.4 mg Medical Necessity - Tobacco Use Smoking Status: Never smoker Tobacco Use: Secondhand Assessment/Plan All Active Problems Shortness of breath (Acute) Acute deep vein thrombosis (DVT) (Acute) Acute DVT of left tibial vein (Acute) 72-year-old male with a history pneumonia, GLEN on CPAP, chronic varicose vein/venous insufficiency and recent history of TURP due to invasive bladder tumor most likely cancer. Hospitalist service was consulted on account of worsening shortness of breath and increasing oxygen requirements. 1. Acute hypoxic respiratory failure likely due to atelectasis: Resolved CT angiogram was negative for PE and showed bibasilar atelectasis and mildly dilated pulmonary artery of 3.1cm. EKG showed no acute ST changes troponin x 3 were negative. required 8L of oxygen; tapered down to 3 12/min. BNP was 85. 2D echo report is pending patient counseled to aggressively use incentive spirometer. Pulmonology consult reviewed.. Patient encouraged to mobilize. duplex of LEs still pending 2. 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 Duplex ordered and is pending. 3. Invasive bladder tumor s/p partial resection likely malignant, per urology management as per urology on flomax UA with reflex urine culture ordered. Patient is on Cipro for suspected UTI. No current UA or urine culture. Previous urine culture of October 19, 2017 shows presumptive E. coli, resistant to Cipro. Change antibiotic to Rocephin. Discontinue Cipro. Need to be discharged on cefadroxil 500 mg p.o. twice daily for 6 more days 4. GAEL: baseline Cr is <1. Cr was 1.26 on admission and trended up to 1.45. Currently 1.34. 5. Hypertension: controlled. On amlodipine 10mg daily. 6. GLEN: on CPAP qhs 14cm H20 7. Remote History of Non Hodgkin's lymphoma: s/p treatment. stable. 8. Chronic venous insufficiency status post venous stripping surgery on left leg: Previous venous Doppler of November 2015 shows valvular competence bilaterally. Compression stockings bilaterally DVT prophylaxis: heparin 5000IU sq q8 Code status: Full code. Microbiology Past 72 Hours 11/02/17 14:40 Urine Catheter - Orozco Urine Culture - Preliminary GNR lactose coal passer Gram negative sophia Laboratory Results 10/31/17 15:15: Diff Path Review Reviewed 11/03/17 06:10: WBC 9.5, RBC 2.86 L, Hgb 9.0 L, Hct 28.2 L, MCV 98.6 H, MCH 31.5, MCHC 31.9 L, RDW 14.3, RDW Differential 48.8 H, Plt Count 287, MPV 10.0, Immature Gran % (Auto) 0.300, Neut % (Auto) 54.0, Lymph % (Auto) 20.8, Polk % (Auto) 17.6 H, Eos % (Auto) 6.7 H, Baso % (Auto) 0.6, Absolute Neuts (auto) 5.1, Absolute Lymphs (auto) 1.97, Total Counted Not Reportable, Differential Comment COMMENT 11/03/17 06:10: Sodium 142, Potassium 4.0, Chloride 109 H, Carbon Dioxide 23.0, Anion Gap 10, BUN 21 H, Creatinine 1.48 H, Estim Creat Clear Calc 53.23, Est GFR (MDRD) Af Amer 60, Est GFR (MDRD) Non-Af 50 L, BUN/Creatinine Ratio 14.2, Glucose 131 H, Calcium 8.6 Clinical Impression(s) from Imaging Studies Abdomen/Pelvis CT 10/30/17 05:00 IMPRESSION: Bibasilar atelectasis. Status post splenectomy. Mildly dilated gallbladder containing multiple tiny gallstones or sludge. 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 Diffusely thickened urinary bladder. A Orozco catheter is seen within. Moderate degree of the left hydronephrosis and hydroureter down to the ureterovesical junction. Chest CT 10/30/17 05:00 IMPRESSION: Findings suggestive bibasilar atelectasis. Mild degree of increased markings in the right upper lobe and lingular segment of the left upper lobe as well. Chest CTA 10/31/17 15:42 IMPRESSION: Limited study due to poor enhancement of the pulmonary arterial tree. There is no demonstrated pulmonary embolism. There is mild dilatation of the main pulmonary artery measuring up to 3.1 cm, which may be associated with pulmonary hypertension. Coronary arterial calcifications are present. Bibasilar atelectasis. Minimal left-sided effusion. Active Medications Acetaminophen (Tylenol) 500 mg PO Q4H PRN PRN PRN Reason: pain Last Admin: 10/29/17 22:12 Dose: 500 mg Albuterol Sulfate (Ventolin Aerosols) 2.5 mg INHALATION Q6HWA.RT [facility] Last Admin: 11/01/17 19:26 Dose: 2.5 mg Amlodipine Besylate (Norvasc) 10 mg PO QHS [facility] Last Admin: 11/01/17 22:05 Dose: 10 mg Ciprofloxacin HCl (Cipro) 500 mg PO BID [facility] Last Admin: 11/02/17 09:37 Dose: 500 mg Cyclobenzaprine HCl (Cyclobenzaprine Hcl) 5 mg PO TID PRN PRN Reason: SPASMS Docusate Sodium (Colace) 100 mg PO BID [facility] Last Admin: 11/02/17 09:37 Dose: 100 mg Heparin Sodium (Porcine) (Heparin Na) 5,000 unit SC Q12 [facility] Last Admin: 11/02/17 09:37 Dose: 5,000 unit Ibuprofen (Motrin) 600 mg PO Q6H PRN PRN PRN Reason: PAIN Last Admin: 11/02/17 07:51 Dose: 600 mg Oxycodone HCl (Oxyir) 5 mg PO Q4H PRN PRN PRN Reason: Pain Last Admin: 11/01/17 22:12 Dose: 5 mg Pantoprazole Sodium (Protonix) 40 mg PO DAILY [facility] Last Admin: 11/02/17 09:39 Dose: 40 mg Sodium Chloride () 5 - 30 ml IV UD PRN PRN Reason: SALINE FLUSH Last Admin: 11/01/17 09:09 Dose: 10 ml Tamsulosin HCl (Flomax) 0.4 mg PO DAILY@1730 [facility] Last Admin: 11/01/17 16:05 Dose: 0.4 mg Code Visit Inpatient E&M: 90572 Subs Hosp L2
[2017-11-03] MEDS: Ceftriaxone 1 GM/50 ML BAG IV (09:41)
[2017-11-03 09:47] VITALS: O2SAT 89; O2SAT 95
[2017-11-03 14:37] LABS: Pathologist Review Reviewed
== END 2017-11-03 13:04 | disposition home or self-care (01) | DRG 982 ==
LOC: SDC 14:47 → MS3 10-31 06:05
PROVIDERS: Anesthesiology; Internal Medicine; Internal Medicine Critical Care Medicine; Student in an Organized Health Care Education/Training Program; Admitting Provider Urology; Family Provider Family Medicine; PCP Family Medicine; Visit Provider Urology
PROC: 0V908ZZ Drainage of Prostate, Via Natural or Artificial Opening Endoscopic (ICD-10-PCS; CPT 52450; principal; 2017-10-29 11:35)
DX: J96.01 Acute respiratory failure with hypoxia (principal); J98.11 Atelectasis; N17.9 Acute kidney failure, unspecified; N39.0 Urinary tract infection, site not specified; N32.0 Bladder-neck obstruction; R31.0 Gross hematuria; I10 Essential (primary) hypertension; G47.33 Obstructive sleep apnea (adult) (pediatric); Z86.718 Personal history of other venous thrombosis and embolism; Z77.22 Contact with and (suspected) exposure to environmental tobacco smoke (acute) (chronic); Z85.72 Personal history of non-Hodgkin lymphomas; C67.9 Malignant neoplasm of bladder, unspecified; I87.2 Venous insufficiency (chronic) (peripheral); Z90.81 Acquired absence of spleen; Z87.01 Personal history of pneumonia (recurrent); I83.10 Varicose veins of unspecified lower extremity with inflammation; Z87.442 Personal history of urinary calculi
CPT/HCPCS: 36415; 36600; 71046; 71260; 71275; 74177; 80048; 81001; 82803; 83880; 84484; 85025; 85027; 87086; 87088; 88305; 93005; 93306; 93970; 94002; 94640; 94660; 94762; 97162; 97802; J7030; J7040; J7120; Q9967; A4216; J1940; J2405

== ENCOUNTER → 2018-02-09 11:35 | Outpatient (CLI) | payer MEDICARE, SELFPAY | PROVIDERS: Family Provider Family Medicine; PCP Family Medicine; Referring Provider Internal Medicine Hematology & Oncology; Visit Provider Internal Medicine Hematology & Oncology | DX: C67.9 Malignant neoplasm of bladder, unspecified (principal) | CPT/HCPCS: 36569 ==

== ENCOUNTER → 2018-12-17 09:44 | Outpatient (CLI) | payer BC, MEDICAID, SELFPAY ==
[2018-12-17 09:32] VITALS: BMI 34.7
--- NOTE | 2018-12-17 09:48 | RAD_ITS ---
STUDY: X-RAY - RIGHT KNEE REASON FOR EXAM: Male, 72 years old. Right knee pain TECHNIQUE: 4 view(s) of the knee. COMPARISON: None. FINDINGS: Normal visualized distal femur. Normal visualized proximal tibia and fibula. Normal proximal tibiofibular articulation. There is moderate degenerative arthrosis of the medial femorotibial compartment with moderate joint space narrowing. There is mild degenerative arthrosis of the lateral femorotibial compartment. Normal patellofemoral articulation. There is a soft tissue prominence in the suprapatellar region suggesting a small volume joint effusion. The soft tissue structures are unremarkable. RAD/Knee 4 or More Views IMPRESSION: Degenerative arthrosis. Small joint effusion. Electronically Signed: Konstantin Hardy MD ([place]) at 15:25 EDT , Service support ,
== END ==
PROVIDERS: Family Provider Family Medicine; PCP Family Medicine; Referring Provider Orthopaedic Surgery; Visit Provider Orthopaedic Surgery
DX: M17.11 Unilateral primary osteoarthritis, right knee (principal)
CPT/HCPCS: 73564